=== PATIENT | female | born 1985 | race African-American/Black ===

== ENCOUNTER 2017-12-04 18:20 | Emergency (ER) | payer OTHER ==
[2017-12-04 20:08] LABS: Urine Blood NEGATIVE (NEG); Urine Glucose NEGATIVE (NEG); Urine Protein NEGATIVE (NEG); Urine Specific Gravity 1.015 (1.005-1.030)
[2017-12-04] MEDS ORDERED: KETOROLAC 30 MG/ML INJ ONE (20:14)
[2017-12-04] MEDS ORDERED: CYCLOBENZAPRINE 10 MG TAB ONE (20:15)
--- NOTE | 2017-12-04 20:53 | EDPHYS ---
Physician Documentation [facility] Name: Radha Grubbs Age: 32 yrs Sex: Female : 1985 Arrival Date: 12/04/2017 Time: 18:24 Bed 11 Private MD: ED Physician Gama So HPI: 12/04 19:39 This 32 yrs old Black Female presents to ER via Ambulatory with complaints of Back Pain.rh1 19:39 The patient presents with pain that is chronic. The symptoms are located in the low rh1 back. Onset: The symptoms/episode began/occurred 5 year(s) ago, and became worse 2 day(s) ago. The pain does not radiate. Associated signs and symptoms: Pertinent negatives: abdominal pain, chest pain, constipation, dysuria, fever, hematuria, incontinence, nausea, numbness, tingling, urinary retention, vomiting, weakness. The problem was sustained when lifting heavy object. Modifying factors: The patient symptoms are alleviated by rest, the patient symptoms are aggravated by any movement. Severity of symptoms: At their worst the symptoms were moderate, in the emergency department the symptoms are unchanged. The patient has experienced similar episodes in the past. The patient has not recently seen a physician. PT. reports lower back pain increased for the past 2 days, began after lifting heavy object at home. Denies any saddle paresthesias, lower extremity paresthesias/weakness, fever/chills, abdominal pain, vomiting, urinary symptoms.. 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 - Social history:: Smoking status: Patient uses tobacco products, smokes one-half pack cigarettes per day. ROS: 19:39 Constitutional: Negative for fever, chills, and weight loss. rh1 19:39 Neck: Negative for pain with movement, pain at rest. 19:39 Cardiovascular: Negative for chest pain, edema. 19:39 Respiratory: Negative for shortness of breath. 19:39 Abdomen/GI: Negative for abdominal pain, nausea and vomiting, constipation, bowel incontinence. 19:39 Back: Positive for pain with movement, Negative for decreased range of motion, pain at rest. 19:39 : Negative for urinary symptoms, small amounts, bladder incontinence. 19:39 MS/extremity: Negative for decreased range of motion, pain, paresthesias. 19:39 Neuro: Negative for altered mental status, dizziness, numbness, tingling, weakness. 19:39 All other systems are negative. Exam: 19:39 Constitutional: This is a well developed, well nourished patient who is awake, alert, rh1 and in no acute distress. Head/Face: Normocephalic, atraumatic. Neck: Trachea midline, and no cervical lymphadenopathy. Supple, full range of motion without nuchal rigidity. No Meningismus. Cardiovascular: Regular rate and rhythm with a normal S1 and S2. No gallops, murmurs, or rubs. No JVD. No pulse deficits. Respiratory: Lungs have equal breath sounds bilaterally, clear to auscultation. No rales, rhonchi or wheezes noted. No increased work of breathing. Abdomen/GI: Soft, non-tender, with normal bowel sounds. No distension. No guarding or rebound. No evidence of tenderness throughout. Skin: Warm, dry with normal turgor. Normal color with no rashes, no lesions, and no evidence of cellulitis. MS/ Extremity: Pulses equal, no cyanosis. Neurovascular intact. Full, normal range of motion. 19:39 Back: pain, that is moderate, of the low back area and mid back area, ROM is painful, with flexion, with extension, CVA tenderness, is absent, muscle spasm, is appreciated in the low back area and mid back area, Straight leg raises: of both lower extremities does not illicit pain. 19:39 Neuro: Orientation: is normal, to person, place \T\ time. Mentation: is normal, lucid, able to follow commands, Motor: is normal, moves all fours, strength is 5/5 in all extremities, dorsi/plantar flexion 5/5 bilaterally, Sensation: is normal, no obvious gross deficits, numbness, is not appreciated, tingling, is not appreciated, Gait: is steady, at a normal pace, without difficulty, Deep tendon reflexes are 2+ (normal) in the right patellar, right Achilles, left patellar and left Achilles. Vital Signs: 18:37 BP 125 / 94; Pulse 80; Resp 16; Temp 98.6(TE); Pulse Ox 100% on R/A; Weight 95.25 kg; la1 Height 5 ft. 6 in. (167.64 cm); 21:00 BP 122 / 87; Pulse 82; Resp 18 S; Temp 98.5(TE); Pulse Ox 97% on R/A; Pain 7/10; bb 18:37 Body Mass Index 33.89 (95.25 kg, 167.64 cm) la1 MDM: 19:39 Patient medically screened. rh1 20:51 Data reviewed: vital signs, nurses notes, lab test result(s), and as a result, I will rh1 discharge patient. Data interpreted: Pulse oximetry: on room air is 100 %. Interpretation: normal. Counseling: I had a detailed discussion with the patient and/or guardian regarding: the historical points, exam findings, and any diagnostic results supporting the discharge/admit diagnosis, lab results, the need for outpatient follow up, a family practitioner, to return to the emergency department if symptoms worsen or persist or if there are any questions or concerns that arise at home. 12/04 19:56 Order name: Urine Dipstick--Ancillary (enter results); Complete Time: 20:12 [facility] 12/04 19:56 Order name: Urine --Ancillary (enter results); Complete Time: 20:12 [facility] 12/04 19:39 Order name: Urine Dipstick-Ancillary (obtain specimen); Complete Time: 19:54 [facility] 12/04 19:39 Order name: Urine Test (obtain specimen); Complete Time: 19:54 [facility] Administered Medications: 20:15 Drug: Ketorolac 60 mg Route: IM; Site: left gluteus; bb 21:06 Follow up: Response: No adverse reaction bb 20:15 Drug: Flexeril 10 mg Route: PO; bb 21:06 Follow up: Response: No adverse reaction bb Disposition: 12/05 05:44 Co-signature as Attending Physician, Gama So MD. ma2 Disposition: 12/04/17 20:52 Discharged to Home. Impression: Low back pain. - Condition is Stable. - Discharge Instructions: Back Pain, Adult, Chronic Back Pain, Back Injury Prevention, [id number], Back Exercises, [id number], Heat Therapy. - Prescriptions for Cyclobenzaprine 10 mg Oral Tablet - take 1 tablet by ORAL route every 8 hours As needed; 30 tablet. Diclofenac Sodium 75 mg Oral Tablet Sustained Release - take 1 tablet by ORAL route 2 times per day; 30 tablet. - Medication Reconciliation Form, Thank You Letter, Antibiotic Education, Prescription Opioid Use form. - Follow up: Private Physician; When: 1 - 2 days; Reason: Recheck today's complaints, Continuance of care, Re-evaluation by your physician. Follow up: Emergency Department; When: As needed; Reason: Fever > 102 F, If symptoms return, Trouble breathing, Worsening of condition. - Problem is new. - Symptoms have improved. Signatures: Dispatcher [employer] EDLana Sena RN RN bb Sadiq Ferguson RN RN la1 Dalila Crocker NP CLAM TREADER 1 Gama So MD MD ma2
--- NOTE | 2017-12-04 20:53 | ER ---
Nurse's Notes [facility] Name: Radha Grubbs Age: 32 yrs Sex: Female : 1985 Arrival Date: 12/04/2017 Time: 18:24 Bed 11 Private MD: Diagnosis: Low back pain Presentation: 12/04 18:36 Presenting complaint: Patient states: I have been having back pain for a couple years la1 but it is worse today. Transition of care: patient was not received from another setting of care. Onset of symptoms was December 04, 2017. Care prior to arrival: None. 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 - Social history:: Smoking status: Patient uses tobacco products, smokes one-half pack cigarettes per day. Screenin:16 Abuse screen: Denies threats or abuse. Nutritional screening: No deficits noted. la1 Tuberculosis screening: No symptoms or risk factors identified. Fall Risk None identified. Assessment: 19:16 General: Appears in no apparent distress. Behavior is calm, cooperative. Pain: la1 Complains of pain in lumbar area, left low back and right low back. Neuro: Level of Consciousness is awake, alert, obeys commands, Oriented to person, place, time, situation, Gait is steady, Speech is normal. Cardiovascular: Capillary refill < 3 seconds Patient's skin is warm and dry. Respiratory: Airway is patent Respiratory effort is even, unlabored, Respiratory pattern is regular, symmetrical. GI: No signs and/or symptoms were reported involving the gastrointestinal system. 19:18 Reassessment: No changes from previously documented assessment. bb 20:59 Reassessment: Patient and/or family updated on plan of care and expected duration. Pain bb level reassessed. Patient states symptoms have not improved. 21:04 Reassessment: Pete Crocker GUNITE MIXER at bedside to discuss findings and recommendations pt to be bb discharged home with RX for pain and muscle relaxer pt verbalized understanding of and agrees to plan of care discharge instructions given pt ambulated with steady gait to exit. Vital Signs: 18:37 BP 125 / 94; Pulse 80; Resp 16; Temp 98.6(TE); Pulse Ox 100% on R/A; Weight 95.25 kg; la1 Height 5 ft. 6 in. (167.64 cm); 21:00 BP 122 / 87; Pulse 82; Resp 18 S; Temp 98.5(TE); Pulse Ox 97% on R/A; Pain 7/10; bb 18:37 Body Mass Index 33.89 (95.25 kg, 167.64 cm) in1 ED Course: 18:24 Patient arrived in ED. mr 18:36 Triage completed. la1 18:37 Arm band placed on left wrist. la1 19:13 Dalila Crocker NP is PHCP. rh1 19:13 Gama So MD is Attending Physician. rh1 19:16 Call light in reach. la1 19:17 Lana Molina, SLAVA is Primary Nurse. bb 21:00 No provider procedures requiring assistance completed. Patient did not have IV access bb during this emergency room visit. Administered Medications: 20:15 Drug: Ketorolac 60 mg Route: IM; Site: left gluteus; bb 21:06 Follow up: Response: No adverse reaction bb 20:15 Drug: Flexeril 10 mg Route: PO; bb 21:06 Follow up: Response: No adverse reaction bb Outcome: 20:52 Discharge ordered by . 1 21:00 Discharged to home ambulatory. bb 21:00 Condition: stable 21:00 Discharge instructions given to patient, Instructed on discharge instructions, follow up and referral plans. medication usage, Demonstrated understanding of instructions, follow-up care, medications, Prescriptions given X 2. 21:06 Patient left the ED. bb Signatures: Juanita Aguillon mr Lana Molina, RN RN bb Sadiq Ferguson RN RN la1 Dalila Crocker, KENDRA GUNITE MIXER [facility]
[2017-12-04 21:25] VITALS: BP 122/87; TEMP 98.5; O2SAT 97
== END 2017-12-04 21:06 | disposition home or self-care (01) ==
LOC: ER 18:20
DX: M54.5 Low back pain (principal)
CPT/HCPCS: 81003; 81025; 96372; 99283

== ENCOUNTER 2017-12-10 19:32 | Emergency (ER) | payer OTHER ==
--- NOTE | 2017-12-10 20:22 | RAD REPORT ---
EXAM DESCRIPTION: RAD - Knee Left 3 View - 12/10/2017 8:13 pm CLINICAL HISTORY: Fall, left knee pain COMPARISON: None. FINDINGS: No fracture, dislocation or periosteal reaction.No joint effusion seen. No joint space destini rowing. No soft tissue abnormality. Clinical concerns for internal derangement or occult bony injury could be further assessed with MR im aging. IMPRESSION: Negative left knee.
--- NOTE | 2017-12-10 20:58 | ER ---
Nurse's Notes [facility] Name: Radha Grubbs Age: 32 yrs Sex: Female : 1985 Arrival Date: 12/10/2017 Time: 19:42 Bed 17 Private MD: Diagnosis: Low back pain;Pain in left knee Presentation: 12/10 19:57 Presenting complaint: Patient states: Seen here 3 days ago for back pain related to aj fall. Given Muscle relaxer and NSAID. Patient reports pain has not gotten better and patient also reports new pain to left knee after slipping in bath tub. Patient arrived with knee brace in place, denies being seen at another facility for this complaint. Transition of care: patient was not received from another setting of care. Onset of symptoms was December 07, 2017. Initial Sepsis Screen: Does the patient meet any 2 criteria? No. Patient's initial sepsis screen is negative. Does the patient have a suspected source of infection? No. Patient's initial sepsis screen is negative. Care prior to arrival: None. 19:57 Method Of Arrival: Ambulatory 19:57 Acuity: TREVOR 4 Triage Assessment: 19:59 General: Appears in no apparent distress. comfortable, Behavior is calm, cooperative, aj appropriate for age. Pain: Complains of pain in left knee Pain currently is 9 out of 10 on a pain scale. Neuro: Level of Consciousness is awake, alert, obeys commands, Oriented to person, place, time, situation. Respiratory: Airway is patent Respiratory effort is even, unlabored, Respiratory pattern is regular, symmetrical. Derm: Skin is intact, is healthy with good turgor, Skin is pink, warm \T\ dry. normal. Musculoskeletal: Circulation, motion, and sensation intact. Range of motion: intact in all extremities, Swelling present in left knee. 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 - Social history:: Smoking status: Patient uses tobacco products, smokes one-half pack cigarettes per day. Screenin:21 Abuse screen: Denies threats or abuse. Denies injuries from another. Nutritional lk1 screening: No deficits noted. Tuberculosis screening: No symptoms or risk factors identified. Fall Risk Total Killian Fall Scale indicates High Risk Score (45 or more points). Fall prevention measures have been instituted. Side Rails Up X 2 Placed Close to Nursing Station Frequent Obs/Assessments Occuring As available patient and family educated on Fall Prevention Program and Strategies. Assessment: 20:20 General: Appears in no apparent distress. Behavior is calm, cooperative, appropriate lk1 for age. Pain: Complains of pain in left knee Pain currently is 9 out of 10 on a pain scale. Neuro: Level of Consciousness is awake, alert, obeys commands, Oriented to person, place, time, situation. Neuro: Gait is steady. Cardiovascular: Capillary refill is brisk Patient's skin is warm and dry. Musculoskeletal: Circulation, motion, and sensation intact. Range of motion: limited in left knee Swelling present in left knee Tenderness present in left knee. Vital Signs: 19:59 BP 133 / 90; Pulse 89; Resp 16; Temp 98.6; Pulse Ox 98% on R/A; Weight 77.11 kg; Height aj 5 ft. 6 in. (167.64 cm); Pain 9/10; 21:10 BP 127 / 79; Pulse 75; Resp 15; Pulse Ox 99% on R/A; lk1 19:59 Body Mass Index 27.44 (77.11 kg, 167.64 cm) aj ED Course: 19:42 Patient arrived in ED. ds1 19:58 Triage completed. aj 19:59 Arm band placed on left wrist. Patient placed in waiting room, Patient notified of wait aj time. X-ray ordered. 20:12 X-ray completed. Portable x-ray completed in exam room. Patient tolerated procedure kc2 well. 20:13 Knee Left 3 View XRAY In Process Unspecified. EDMS 20:30 Denton De NP is PHCP. pm1 20:30 Dilip Ahuja MD is Attending Physician. pm1 21:19 Kia Rice, SLAVA is Primary Nurse. lk1 21:21 Patient has correct armband on for positive identification. Bed in low position. Call lk1 light in reach. 21:21 No provider procedures requiring assistance completed. Patient did not have IV access lk1 during this emergency room visit. Crutch training done. Knee immobilizer applied on left knee. Administered Medications: No medications were administered Outcome: 20:57 Discharge ordered by MD. pm1 21:22 Discharged to home ambulatory, with crutches. lk1 21:22 Condition: good 21:22 Discharge instructions given to patient, Instructed on discharge instructions, follow up and referral plans. medication usage, safety practices, crutch walking, Demonstrated understanding of instructions, follow-up care, medications, crutch walking, Prescriptions given X 1. 21:24 Patient left the ED. lk1 Signatures: Dispatcher [employer] EDMS Cinthia Ferrer, RN Deepthi Reinoso ds1 Kia Rice RN RN lk1 Denton De, KENDRA ION EXCHANGE OPERATOR pm1 Gela Cai2
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
[2017-12-10 21:36] VITALS: TEMP 98.6
[2017-12-10 21:37] VITALS: BP 127/79; O2SAT 99
== END 2017-12-10 21:24 | disposition home or self-care (01) ==
LOC: ER 19:32
DX: M25.562 Pain in left knee (principal); M54.5 Low back pain; I10 Essential (primary) hypertension; F31.9 Bipolar disorder, unspecified; F17.210 Nicotine dependence, cigarettes, uncomplicated; W18.2XXA Fall in (into) shower or empty bathtub, initial encounter; Y93.9 Activity, unspecified; Y92.002 Bathroom of unspecified non-institutional (private) residence as the place of occurrence of the external cause
CPT/HCPCS: 99283

== ENCOUNTER 2018-04-29 13:03 | Emergency (ER) | payer OTHER ==
--- OUTSIDE RECORDS SUMMARY | 2018-04-29 13:06 | XMS REPORT ---
:1985 Author Organization [employer] Care Team Providers Name Role Phone Gagnon, Na Provider Role Unavailable Allergies, Adverse Reactions, Alerts Substance Reaction Event Type N.K.D.A. Info Not Available Non Drug Allergy Problems Problem Type Condition Code Onset Dates Condition Status Assessment Anxiety F41.9 Active Assessment Seizure R56.9 Active Assessment Bipolar 1 disorder F31.9 Active Problem Anxiety F41.9 Active Problem Bipolar 1 disorder F31.9 Active Problem Hypertension I10 Active Assessment Hypertension I10 Active Problem Migraine G43.909 Active Problem Seizure R56.9 Active Medications Medication Code Code Instructions Start End Date Status Dosage System Date Amlodipine [facility] 12918008849 10 MG Orally Active 1 tablet Besylate Once a day Xanax [facility] 30800402009 2 MG Orally Active 1 tablet Three times a day Results No Known Results Summary Purpose [employer] Submission
--- OUTSIDE RECORDS SUMMARY | 2018-04-29 13:06 | XMS REPORT ---
:1985 Author Organization [employer] Care Team Providers Name Role Phone Gagnon, Na Provider Role Unavailable Allergies, Adverse Reactions, Alerts Substance Reaction Event Type N.K.D.A. Info Not Available Non Drug Allergy Problems Problem Type Condition Code Onset Dates Condition Status Assessment Anxiety F41.9 Active Assessment Seizure R56.9 Active Assessment Bipolar 1 disorder F31.9 Active Assessment Blood tests for routine general Z00.00 Active physical examination Problem Anxiety F41.9 Active Problem Bipolar 1 disorder F31.9 Active Problem Hypertension I10 Active Assessment Hypertension I10 Active Problem Migraine G43.909 Active Problem Seizure R56.9 Active Medications Medication Code Code Instructions Start End Status Dosage System Date Date Xanax [facility] [address]-56 2 MG Orally Active 1 tablet Three times a day Amlodipine [facility] 35495681195 10 MG Orally Active 1 tablet Besylate Once a day Results No Known Results Summary Purpose [employer] Submission
--- NOTE | 2018-04-29 14:32 | ER ---
Nurse's Notes [facility] Name: Radha Grubbs Age: 32 yrs Sex: Female : 1985 Arrival Date: 04/29/2018 Time: 13:04 Bed Waiting Private MD: Diagnosis: Presentation: 04/29 13:33 Presenting complaint: Patient states: Reports N/V for 2 days. Reports she is still aj making urine and is able to tolerate fluids. Transition of care: patient was not received from another setting of care. Onset of symptoms was April 26, 2018. Risk Assessment: Do you want to hurt yourself or someone else? Patient reports no desire to harm self or others. Initial Sepsis Screen: Does the patient meet any 2 criteria? No. Patient's initial sepsis screen is negative. Does the patient have a suspected source of infection? No. Patient's initial sepsis screen is negative. Note Patient inquired about wait time. Care prior to arrival: None. 13:33 Method Of Arrival: Ambulatory aj 13:33 Acuity: TREVOR 2 aj Triage Assessment: 13:35 General: Appears in no apparent distress. comfortable, Behavior is calm, cooperative, aj appropriate for age. Pain: Denies pain. 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 Full function Gait is steady, Speech is normal, Facial symmetry appears normal, Pupils are PERRLA, Intact. Respiratory: Airway is patent Respiratory effort is even, unlabored, Respiratory pattern is regular, symmetrical. GI: Reports nausea, vomiting. Derm: Skin is intact, is healthy with good turgor, Skin is pink, warm \T\ dry. normal. 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 - Social history:: Smoking status: Patient uses tobacco products, smokes one-half pack cigarettes per day. - Ebola Screening: : Patient negative for fever greater than or equal to 101.5 degrees Fahrenheit, and additional compatible Ebola Virus Disease symptoms Patient denies exposure to infectious person Patient denies travel to an Ebola-affected area in the 21 days before illness onset No symptoms or risks identified at this time. Vital Signs: 13:35 BP 155 / 115; Pulse 79; Resp 16; Temp 98.2; Pulse Ox 99% on R/A; Weight 86.18 kg; aj Height 5 ft. 7 in. (170.18 cm); 13:35 Body Mass Index 29.76 (86.18 kg, 170.18 cm) aj ED Course: 13:04 Patient arrived in ED. rg4 13:34 Triage completed. aj 13:35 Arm band placed on left wrist. Patient placed in waiting room, Patient notified of wait aj time. 13:53 Patient's name was called from ER lobby. No response. dm5 14:23 Patient's name was called from ER lobby. No response. dm5 14:31 Johnie Albarado MD is Attending Physician. aj 14:31 Patient's name was called from ER lobby. No response. aj Administered Medications: No medications were administered Outcome: 14:31 Eloped from waiting room, before seeing physician Time discovered patient gone: aj April 29, 2018 at 14:31 14:31 Patient left the ED. aj Signatures: Mima Rothman, RN RN Cinthia Park RN RN Latanya Peñaloza rg4 Corrections: (The following items were deleted from the chart) 13:34 13:33 Acuity: TREVOR 3 aj aj
== END 2018-04-29 14:31 | disposition left against medical advice (07) ==
LOC: ER 13:03
DX: Z53.21 Procedure and treatment not carried out due to patient leaving prior to being seen by health care provider (principal)
CPT/HCPCS: 99281

== ENCOUNTER 2018-08-15 20:43 | Emergency (ER) | payer SELFPAY ==
--- OUTSIDE RECORDS SUMMARY | 2018-08-15 20:45 | XMS REPORT ---
[...] End Status Dosage System Date Date Xanax [facility] [address]-33 2 MG Orally Active 1 tablet Three times a day Amlodipine [facility] 61199409685 10 MG Orally Active 1 tablet Besylate Once a day Results No Known Results Summary Purpose eClinicalWorks Submission
--- OUTSIDE RECORDS SUMMARY | 2018-08-15 20:45 | XMS REPORT ---
:1985 Author Organization eClinicalWorks Care Team Providers Name Role Phone Gagnon, Na Provider Role Unavailable Allergies No Known Allergies Problems Problem Type Condition Code Onset Dates Condition Status Problem Anxiety F41.9 Active Problem Bipolar 1 disorder F31.9 Active Problem Hypertension I10 Active Problem Migraine G43.909 Active Problem Seizure R56.9 Active Medications No Known Medications Results No Known Results Summary Purpose eClinicalWorks Submission
--- OUTSIDE RECORDS SUMMARY | 2018-08-15 20:45 | XMS REPORT ---
:1985 Author Organization eClinicalWorks Care Team Providers Name Role Phone Saurabh Bell Provider Role Unavailable Allergies, Adverse Reactions, Alerts Substance Reaction Event Type N.K.D.A. Info Not Available Non Drug Allergy Problems Problem Type Condition Code Onset Dates Condition Status Assessment Anxiety F41.9 Active Problem Anxiety F41.9 Active Problem Bipolar 1 disorder F31.9 Active Problem Hypertension I10 Active Assessment Hypertension I10 Active Problem Migraine G43.909 Active Problem Seizure R56.9 Active Medications Medication Code Code Instructions Start End Date Status Dosage System Date Xanax [facility] [id number] 2 MG Orally Active 1 tablet Three times a day Amlodipine [facility] 80462507653 10 MG Orally Oct 15, Active 1 tablet Besylate Once a day 2017 Results No Known Results Summary Purpose eClinicalWorks Submission
--- OUTSIDE RECORDS SUMMARY | 2018-08-15 20:45 | XMS REPORT ---
[...] End Date Status Dosage System Date Amlodipine [facility] 83068431433 10 MG Orally Active 1 tablet Besylate Once a day Xanax [facility] 43897289419 2 MG Orally Active 1 tablet Three times a day Results No Known Results Summary Purpose eClinicalWorks Submission
[2018-08-15 22:22] LABS: Absolute Lymphocytes (CBC) 2.7 K/uL (0.7-4.9); Absolute Monocytes 0.7 K/uL (0.1-1.3); Absolute Neutrophil 3.9 K/uL (1.8-8.0); Eosinophils % 3.8 % (0-4.4); Hematocrit 36.6 % (36.0-45.0); Lymphocytes % 35.1 % (15.3-44.8); MPV 8.3 fL (7.6-11.3); Monocytes % 8.9 % (3.3-12.3); RBC Red Blood Cell Count 4.42 M/uL (3.86-4.86)
[2018-08-15 22:24] LABS: Barbiturates NEGATIVE (NEGATIVE); Benzodiazepines POSITIVE (NEGATIVE); Cocaine NEGATIVE (NEGATIVE); METHAMPHETAM NEGATIVE (NEGATIVE); Methadone NEGATIVE (NEGATIVE); Opiates NEGATIVE (NEGATIVE); Phencyclidine NEGATIVE (NEGATIVE); THC Cannibis POSITIVE (NEGATIVE)
[2018-08-15 22:27] LABS: Protime INR 1.1
[2018-08-15 22:37] LABS: ALT/SGPT 16 U/L (12-78); AST/SGOT 9 U/L (15-37); Albumin 3.5 g/dL (3.4-5.0); Alkaline Phosphatase 59 U/L (45-117); BUN Blood Urea Nitrogen 21 mg/dL (7-18); Bicarbonate 25 mmol/L (21-32); Bilirubin Direct 0.2 mg/dL (0-0.2); Bilirubin Total 0.4 mg/dL (0.2-1.0); Glucose Level 84 mg/dL (74-106); Magnesium 2.1 mg/dL (1.8-2.4); NT PRO-BNP 69 pg/mL (<125); Protein, Total 7.1 g/dL (6.4-8.2); Sodium Level 141 mmol/L (136-145); Troponin (Emerg Dept Use Only) < 0.02 ng/mL (0.0-0.045)
[2018-08-15 22:39] LABS: Urine Blood NEGATIVE (NEG); Urine Glucose NEGATIVE (NEG); Urine Protein NEGATIVE (NEG); Urine pH 6.5 (5.0-7.0)
[2018-08-15] MEDS ORDERED: HYDROCODONE/APAP 7.5/325 MG TAB ONE (23:08)
--- NOTE | 2018-08-16 01:01 | ER ---
Nurse's Notes [facility] Name: Radha Grubbs Age: 33 yrs Sex: Female : 1985 Arrival Date: 08/15/2018 Time: 20:44 Bed 19 Private MD: Diagnosis: Chest pain. Neck pain. Right knee pain. Substance abuse Presentation: 08/15 21:00 Presenting complaint: EMS states: patient experiencing chest pain like a popping pain rr5 started today and back spasm. AO x3 unable to answer exact date and presidents name. Transition of care: patient was not received from another setting of care. Onset of symptoms was August 15, 2018. Risk Assessment: Do you want to hurt yourself or someone else? Patient reports no desire to harm self or others. Initial Sepsis Screen: Does the patient meet any 2 criteria? No. Patient's initial sepsis screen is negative. Does the patient have a suspected source of infection? No. Patient's initial sepsis screen is negative. Note patient noted being flat affect. no complaints of chest pain as of the moment as verbalized. with right wrist and knee immobilizer. Care prior to arrival: None. 21:00 Method Of Arrival: EMS: [facility] rr5 21:00 Acuity: TREVOR 3 rr5 Triage Assessment: 21:11 General: Appears in no apparent distress. Behavior is calm, cooperative, flat, quiet. rr5 Pain: Denies pain. EENT: No signs and/or symptoms were reported regarding the EENT system. Neuro: Level of Consciousness is awake, alert, obeys commands, Oriented to person, place, time, Pupils are PERRLA. Cardiovascular: Capillary refill < 3 seconds Patient's skin is warm and dry. Rhythm is regular. Respiratory: Airway is patent Respiratory effort is even, unlabored, Respiratory pattern is regular, symmetrical. GI: No signs and/or symptoms were reported involving the gastrointestinal system. : No signs and/or symptoms were reported regarding the genitourinary system. Derm: Skin is intact, Skin temperature is warm. Musculoskeletal: Capillary refill < 3 seconds, immobilizer at right wrist and right leg noted. 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 - Social history:: Smoking status: Patient uses tobacco products, smokes one-half pack cigarettes per day, Patient uses street drugs, marijuana, Patient/guardian denies using alcohol. - Ebola Screening: : Patient negative for fever greater than or equal to 101.5 degrees Fahrenheit, and additional compatible Ebola Virus Disease symptoms Patient denies exposure to infectious person Patient denies travel to an Ebola-affected area in the 21 days before illness onset. Screenin:10 Abuse screen: Denies threats or abuse. Denies injuries from another. Nutritional rr5 screening: No deficits noted. Tuberculosis screening: No symptoms or risk factors identified. Fall Risk Mental Status- Overestimates/Forgets Limitations (15 pts.). Total Killian Fall Scale indicates No Risk (0-24 pts). Assessment: 21:15 General: see triage assessment. Pain: Denies pain. rr5 21:15 Pain: Pain does not radiate. Pain began episode of chest pain started 1800 today. as of rr5 this moment negative for pain. 22:00 Reassessment: Patient appears in no apparent distress at this time. No changes from rr5 previously documented assessment. patient is quiet, no complaints made. Patient denies pain at this time. 22:50 Pain: Complains of pain in back Pain does not radiate. Pain currently is 5 out of 10 on rr5 a pain scale. Quality of pain is described as aching, Pain began gradually, Is intermittent. 23:00 Reassessment: Patient appears in no apparent distress at this time. complaint of back rr5 pain, stat medication given. 08/16 00:00 Reassessment: Patient appears in no apparent distress at this time. discharge rr5 instruction and prescription given and explained. vitally stable. Reassessment: Patient appears in no apparent distress at this time. review done by dr. dumont for discharge,explained to patient. 00:45 Reassessment: Patient appears in no apparent distress at this time. send for xray of rr5 cervical spine. 01:30 Reassessment: Patient appears in no apparent distress at this time. requested for rr5 liquid form of medication dr. dumont informed and changed the prescription. discharge instruction and prescription given and explained to patient. Vital Signs: 08/15 21:00 BP 147 / 106; Pulse 83; Resp 17; Temp 98.2; Pulse Ox 98% ; Weight 77.11 kg; Height 5 rr5 ft. 7 in. (170.18 cm); Pain 0/10; 22:00 BP 136 / 70; Pulse 80; Resp 17; Pulse Ox 99% ; rr5 23:00 BP 121 / 70; Pulse 79; Resp 17; Pulse Ox 99% ; rr5 08/16 00:00 BP 130 / 71; Pulse 80; Resp 15; Pulse Ox 99% ; rr5 01:00 BP 136 / 79; Pulse 76; Resp 16; Pulse Ox 98% ; rr5 01:30 BP 125 / 65; Pulse 80; Resp 16; Pulse Ox 99% ; rr5 08/15 21:00 Body Mass Index 26.63 (77.11 kg, 170.18 cm) rr5 ED Course: 08/15 20:44 Patient arrived in ED. am2 20:59 Diego Tejeda, SLAVA is Primary Nurse. rr5 21:05 Triage completed. rr5 21:10 Arm band placed on left wrist. EKG completed in triage. Results shown to MD. rr5 21:10 Patient has correct armband on for positive identification. Bed in low position. Call rr5 light in reach. Side rails up X2. radiation monitor on. Pulse ox on. NIBP on. 21:20 Severino Dumont MD is Attending Physician. pkl 22:05 Inserted saline lock: 20 gauge in left forearm, using aseptic technique. Blood rr5 collected. 22:05 Patient maintains SpO2 saturation greater than 95% on room air. rr5 22:28 XRAY Chest (1 view) In Process Unspecified. EDMS 22:28 Knee Right 3 View XRAY In Process Unspecified. EDMS 08/16 00:45 Patient moved to radiology via wheelchair. kw 00:45 X-ray completed. Patient tolerated procedure well. kw 00:46 Patient moved back from radiology. kw 00:46 XRAY C Spine Ap/lat In Process Unspecified. EDMS 01:30 No provider procedures requiring assistance completed. IV discontinued, intact, rr5 bleeding controlled, No redness/swelling at site. Pressure dressing applied. Administered Medications: 08/15 23:00 Drug: [place] (7.5 mg-325 mg) 1 tabs Route: PO; rr5 23:50 Follow up: Response: No adverse reaction rr5 Outcome: 08/16 01:00 Discharge ordered by . leona 01:30 Discharged to home ambulatory. rr5 01:30 Condition: stable 01:30 Discharge instructions given to patient, Instructed on discharge instructions, follow up and referral plans. medication usage, Demonstrated understanding of instructions, follow-up care, medications, Prescriptions given X 2. 01:44 Patient left the ED. rr5 Signatures: Dispatcher [employer] EDMS Severino Dumont MD MD pkl Whitley, Kimberlee kw Moreno, Amanda am2 Roque, Raymond, RN RN rr5
--- NOTE | 2018-08-16 01:01 | EDPHYS ---
Physician Documentation [facility] Name: Radha Grubbs Age: 33 yrs Sex: Female : 1985 Arrival Date: 08/15/2018 Time: 20:44 Bed 19 Private MD: ED Physician Severino Munson HPI: 08/15 23:09 This 33 yrs old Black Female presents to ER via EMS with complaints of Chest Pain. pkl 23:09 The patient or guardian reports chest pain that is located primarily in the substernal pkl area. The pain radiates to back. Associated signs and symptoms: Pertinent positives: pain right knee. The chest pain is described as dull. The patient has experienced similar episodes in the past, several times. 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 - Social history:: Smoking status: Patient uses tobacco products, smokes one-half pack cigarettes per day, Patient uses street drugs, marijuana, Patient/guardian denies using alcohol. - Ebola Screening: : Patient negative for fever greater than or equal to 101.5 degrees Fahrenheit, and additional compatible Ebola Virus Disease symptoms Patient denies exposure to infectious person Patient denies travel to an Ebola-affected area in the 21 days before illness onset. ROS: 23:09 Eyes: Negative for injury, pain, redness, and discharge, ENT: Negative for injury, pkl pain, and discharge, Neck: Negative for injury, pain, and swelling. 23:09 Cardiovascular: Positive for chest pain. 23:09 Respiratory: Negative for cough, shortness of breath. 23:09 Abdomen/GI: Negative for abdominal pain, nausea, vomiting, and diarrhea. 23:09 Back: Negative for acute changes. 23:09 : Negative for urinary symptoms. 23:09 MS/extremity: Positive for pain, of the right knee. 23:09 Skin: Negative for rash, acute changes. 23:09 Neuro: Negative for altered mental status, loss of consciousness. Exam: 23:09 Head/Face: Normocephalic, atraumatic. Eyes: Pupils equal round and reactive to light, pkl extra-ocular motions intact. Lids and lashes normal. Conjunctiva and sclera are non-icteric and not injected. Cornea within normal limits. Periorbital areas with no swelling, redness, or edema. ENT: Nares patent. No nasal discharge, no septal abnormalities noted. Tympanic membranes are normal and external auditory canals are clear. Oropharynx with no redness, swelling, or masses, exudates, or evidence of obstruction, uvula midline. Mucous membranes moist. Neck: Trachea midline, no thyromegaly or masses palpated, and no cervical lymphadenopathy. Supple, full range of motion without nuchal rigidity, or vertebral point tenderness. No Meningismus. Chest/axilla: Normal chest wall appearance and motion. Nontender with no deformity. No lesions are appreciated. Cardiovascular: Regular rate and rhythm with a normal S1 and S2. No gallops, murmurs, or rubs. Normal PMI, no JVD. No pulse deficits. Respiratory: Lungs have equal breath sounds bilaterally, clear to auscultation and percussion. No rales, rhonchi or wheezes noted. No increased work of breathing, no retractions or nasal flaring. Abdomen/GI: Soft, non-tender, with normal bowel sounds. No distension or tympany. No guarding or rebound. No evidence of tenderness throughout. Back: No spinal tenderness. No costovertebral tenderness. Full range of motion. Skin: Warm, dry with normal turgor. Normal color with no rashes, no lesions, and no evidence of cellulitis. MS/ Extremity: Pulses equal, no cyanosis. Neurovascular intact. Full, normal range of motion. Neuro: Awake and alert, GCS 15, oriented to person, place, time, and situation. Cranial nerves II-XII grossly intact. Motor strength 5/5 in all extremities. Sensory grossly intact. Cerebellar exam normal. Normal gait. Vital Signs: 21:00 BP 147 / 106; Pulse 83; Resp 17; Temp 98.2; Pulse Ox 98% ; Weight 77.11 kg; Height 5 rr5 ft. 7 in. (170.18 cm); Pain 0/10; 22:00 BP 136 / 70; Pulse 80; Resp 17; Pulse Ox 99% ; rr5 23:00 BP 121 / 70; Pulse 79; Resp 17; Pulse Ox 99% ; rr5 08/16 00:00 BP 130 / 71; Pulse 80; Resp 15; Pulse Ox 99% ; rr5 01:00 BP 136 / 79; Pulse 76; Resp 16; Pulse Ox 98% ; rr5 01:30 BP 125 / 65; Pulse 80; Resp 16; Pulse Ox 99% ; rr5 08/15 21:00 Body Mass Index 26.63 (77.11 kg, 170.18 cm) rr5 MDM: 08/15 20:59 Patient medically screened. snw 08/16 00:58 Data reviewed: vital signs, nurses notes, lab test result(s), EKG, radiologic studies, pkl plain films. 01:00 Patient medically screened. pkl 08/15 21:29 Order name: Basic Metabolic Panel pkl 08/15 21:29 Order name: CBC with Diff pkl 08/15 21:29 Order name: LFT's pkl 08/15 21:29 Order name: Magnesium; Complete Time: 23:07 pkl 08/15 21:29 Order name: NT PRO-BNP; Complete Time: 23:07 pkl 08/15 21:29 Order name: PT-INR; Complete Time: 23:07 pkl 08/15 21:29 Order name: Troponin (emerg Dept Use Only); Complete Time: 23:07 pkl 08/15 21:29 Order name: D-Dimer; Complete Time: 23:07 pkl 08/15 21:30 Order name: Basic Metabolic Panel; Complete Time: 23:07 EDMS 08/15 21:30 Order name: CBC with Automated Diff; Complete Time: 23:07 EDMS 08/15 21:30 Order name: Liver (Hepatic) Function; Complete Time: 23:07 EDMS 08/15 21:30 Order name: UDS; Complete Time: 23:07 pkl 08/15 22:27 Order name: Urine Dipstick--Ancillary (enter results); Complete Time: 23:07 mw2 08/15 22:27 Order name: Urine --Ancillary (enter results); Complete Time: 23:07 mw2 08/15 21:29 Order name: XRAY Chest (1 view) pkl 08/15 21:29 Order name: EKG; Complete Time: 21:31 pkl 08/15 21:29 Order name: Cardiac monitoring; Complete Time: 22:08 pkl 08/15 21:29 Order name: EKG - Nurse/Tech; Complete Time: 21:39 pkl 08/15 21:29 Order name: IV Saline Lock; Complete Time: 22:08 pkl 08/15 21:29 Order name: Labs collected and sent; Complete Time: 22:09 pkl 08/15 21:29 Order name: O2 Per Protocol; Complete Time: 21:39 pkl 08/15 21:29 Order name: O2 Sat Monitoring; Complete Time: 21:39 pkl 08/15 21:30 Order name: Knee Right 3 View XRAY pkl 08/15 23:44 Order name: XRAY C Spine Ap/lat pkl Administered Medications: 08/15 23:00 Drug: [place] (7.5 mg-325 mg) 1 tabs Route: PO; rr5 23:50 Follow up: Response: No adverse reaction rr5 Disposition: 08/16/18 01:00 Discharged to Home. Impression: Chest pain. Neck pain. Right knee pain. Substance abuse. - Condition is Stable. - Prescriptions for Ultram 50 mg Oral Tablet - take 1 tablet by ORAL route every 8 hours As needed; 20 tablet. promethazine 6.25 mg/5 mL Oral Syrup - take 10 milliliters by ORAL route 3 times per day As needed; 120 milliliter. - Medication Reconciliation Form, Thank You Letter, Antibiotic Education, Prescription Opioid Use form. - Follow up: Private Physician; When: 2 - 3 days; Reason: Re-evaluation by your physician. - Problem is new. - Symptoms have improved. Signatures: Dispatcher [employer] EDMI Severino Munson MD MD pkl Therrien, Shelly, THERMOMETER MAKER-C THERMOMETER MAKER-Csnw Diego Tejeda RN RN rr5 Corrections: (The following items were deleted from the chart) 08/16 01:44 01:00 08/16/2018 01:00 Discharged to Home. Impression: Chest pain. Neck pain. Right rr5 knee pain. Substance abuse. Condition is Stable. Forms are Medication Reconciliation Form, Thank You Letter, Antibiotic Education, Prescription Opioid Use. Follow up: Private Physician; When: 2 - 3 days; Reason: Re-evaluation by your physician. Problem is new. Symptoms have improved. pkl
[2018-08-16 02:00] VITALS: TEMP 98.2
[2018-08-16 02:06] VITALS: BP 125/65; O2SAT 99
--- NOTE | 2018-08-16 07:55 | EKG ---
Test Date: 2018-08-15 Test Time: 20:56:07 Research And Development Scientist: DESTINY MEASUREMENT RESULTS: Intervals: Rate: 85 WV: 152 QRSD: 82 QT: 368 QTc: 437 [place]: P: 66 WV: 152 QRS: 53 T: 46 INTERPRETIVE STATEMENTS: Normal sinus rhythm Possible Left atrial enlargement Borderline ECG Compared to ECG 12/07/2013 09:52:13 No significant changes Electronically Signed On 08-16-18 07:53:54 HYDROTHERAPIST by Ruben Cox
--- NOTE | 2018-08-16 08:04 | RAD REPORT ---
EXAM DESCRIPTION: RAD - Chest Single View - 08/15/2018 10:28 pm CLINICAL HISTORY: Chest pain COMPARISON: January 2013 TECHNIQUE: AP portable chest image was obtained 2218 hours . FINDINGS: Lungs are clear. Heart and vasculature are normal. No measurable pleural effusion and no p neumothorax. No acute bony abnormality seen. No acute aortic findings suspected. IMPRESSION: No acute cardiopulmonary process. No suspicious interval change. Signed report
--- NOTE | 2018-08-16 08:06 | RAD REPORT ---
EXAM DESCRIPTION: RAD - Knee Right 3 View - 08/15/2018 10:28 pm CLINICAL HISTORY: Knee pain COMPARISON: None. FINDINGS: No fracture, dislocation or periosteal reaction.No joint effusion seen. No joint space destini rowing. No foreign body or other soft tissue abnormality. IMPRESSION: Negative right knee. Clinical concerns for internal derangement or occult bony injury could be further assessed with MR im aging.
--- NOTE | 2018-08-16 08:12 | RAD REPORT ---
EXAM DESCRIPTION: RAD - C Spine Ap/Lat - 08/16/2018 12:58 am CLINICAL HISTORY: Neck pain COMPARISON: March 2012 FINDINGS: Cervical bodies are normal in height and alignment. No fracture or acute bony process seen . No disc space narrowing. There is no prevertebral soft tissue thickening or other suspicious soft tissue finding. IMPRESSION: Negative cervical spine examination.
== END 2018-08-16 01:44 | disposition home or self-care (01) ==
LOC: ER 20:43
DX: M54.2 Cervicalgia (principal); R07.9 Chest pain, unspecified; M25.561 Pain in right knee; F19.10 Other psychoactive substance abuse, uncomplicated; F17.210 Nicotine dependence, cigarettes, uncomplicated; F12.90 Cannabis use, unspecified, uncomplicated; F31.9 Bipolar disorder, unspecified; F41.9 Anxiety disorder, unspecified; I10 Essential (primary) hypertension; Z79.899 Other long term (current) drug therapy
CPT/HCPCS: 36415; 71045; 72040; 80048; 80076; 80307; 81003; 81025; 83735; 83880; 84484; 85025; 85379; 85610; 93005; 99285

== ENCOUNTER 2018-08-23 00:57 | Emergency (ER) | payer SELFPAY ==
--- OUTSIDE RECORDS SUMMARY | 2018-08-23 01:00 | XMS REPORT ---
[...] End Status Dosage System Date Date Xanax [facility] [address]-57 2 MG Orally Active 1 tablet Three times a day Amlodipine [facility] 06747497827 10 MG Orally Active 1 tablet Besylate Once a day Results No Known Results Summary Purpose eClinicalWorks Submission
--- OUTSIDE RECORDS SUMMARY | 2018-08-23 01:00 | XMS REPORT ---
[...] End Date Status Dosage System Date Amlodipine [facility] 06577947506 10 MG Orally Active 1 tablet Besylate Once a day Xanax [facility] 02947905359 2 MG Orally Active 1 tablet Three times a day Results No Known Results Summary Purpose eClinicalWorks Submission
--- OUTSIDE RECORDS SUMMARY | 2018-08-23 01:00 | XMS REPORT ---
[...] Dosage System Date Xanax [facility] 68575142697 2 MG Orally Active 1 tablet Three times a day Amlodipine [facility] 65439122427 10 MG Orally Oct 15, Active 1 tablet Besylate Once a day 2017 Results No Known Results Summary Purpose eClinicalWorks Submission
--- NOTE | 2018-08-23 02:45 | EDPHYS ---
Physician Documentation [facility] Name: Radha Grubbs Age: 33 yrs Sex: Female : 1985 Arrival Date: 08/23/2018 Time: 01:01 Bed 17 Private MD: ED Physician Dilip Ahuja HPI: 08/23 05:28 This 33 yrs old Black Female presents to ER via EMS with complaints of back pain. gs 05:28 The symptoms are located in the low back. Onset: The symptoms/episode began/occurred 1 gs week(s) ago. The pain does not radiate. Associated signs and symptoms: Pertinent negatives: incontinence, urinary retention. Modifying factors: the patient symptoms are aggravated by bending. Severity of symptoms: At their worst the symptoms were moderate, in the emergency department the symptoms are unchanged. The patient has experienced similar episodes in the past, multiple times, chronically. The patient has been recently seen at the [facility] Emergency Department, a couple of weeks ago, for similar complaints. 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 - Social history:: Smoking status: Patient uses tobacco products, smokes one-half pack cigarettes per day. - Ebola Screening: : No symptoms or risks identified at this time. ROS: 05:28 All other systems are negative. gs 05:28 Neck: Positive for pain with movement. gs Exam: 05:28 Head/Face: Normocephalic, atraumatic. Eyes: Pupils equal round and reactive to light, gs extra-ocular motions intact. Lids and lashes normal. Conjunctiva and sclera are non-icteric and not injected. Cornea within normal limits. Periorbital areas with no swelling, redness, or edema. ENT: Nares patent. No nasal discharge, no septal abnormalities noted. Tympanic membranes are normal and external auditory canals are clear. Oropharynx with no redness, swelling, or masses, exudates, or evidence of obstruction, uvula midline. Mucous membranes moist. Neck: Trachea midline, no thyromegaly or masses palpated, and no cervical lymphadenopathy. Supple, full range of motion without nuchal rigidity, or vertebral point tenderness. No Meningismus. Chest/axilla: Normal chest wall appearance and motion. Nontender with no deformity. No lesions are appreciated. Cardiovascular: Regular rate and rhythm with a normal S1 and S2. No gallops, murmurs, or rubs. Normal PMI, no JVD. No pulse deficits. Respiratory: Lungs have equal breath sounds bilaterally, clear to auscultation and percussion. No rales, rhonchi or wheezes noted. No increased work of breathing, no retractions or nasal flaring. Abdomen/GI: Soft, non-tender, with normal bowel sounds. No distension or tympany. No guarding or rebound. No evidence of tenderness throughout. Back: No spinal tenderness. No costovertebral tenderness. Full range of motion. Skin: Warm, dry with normal turgor. Normal color with no rashes, no lesions, and no evidence of cellulitis. MS/ Extremity: Pulses equal, no cyanosis. Neurovascular intact. Full, normal range of motion. Neuro: Awake and alert, GCS 15, oriented to person, place, time, and situation. Cranial nerves II-XII grossly intact. Motor strength 5/5 in all extremities. Sensory grossly intact. Cerebellar exam normal. Normal gait. 05:28 Constitutional: The patient appears alert, awake. Vital Signs: 01:12 BP 132 / 98; Pulse 75; Resp 18; Temp 98.6(O); Pulse Ox 100% on R/A; Weight 92.99 kg; tl2 Height 5 ft. 7 in. (170.18 cm); Pain 3/10; 02:27 BP 129 / 100; Pulse 75; Resp 18; Pulse Ox 100% on R/A; tl2 03:07 BP 127 / 99; Pulse 71; Resp 18; Pulse Ox 100% on R/A; tl2 01:12 Body Mass Index 32.11 (92.99 kg, 170.18 cm) tl2 MDM: 01:38 Patient medically screened. 05:28 Differential diagnosis: sprain. Data reviewed: vital signs, nurses notes. Counseling: I gs had a detailed discussion with the patient and/or guardian regarding: the historical points, exam findings, and any diagnostic results supporting the discharge/admit diagnosis, the need for outpatient follow up. Response to treatment: the patient's symptoms have markedly improved after treatment, and as a result, I will discharge patient. Administered Medications: 03:06 Drug: Pepcid 20 mg Route: PO; tl2 03:08 Follow up: Response: No adverse reaction; Medication administered at discharge. tl2 Disposition: 08/23/18 02:44 Discharged to Home. Impression: Chronic pain syndrome, Low back pain, Cervical disc disorders. - Condition is Stable. - Discharge Instructions: Back Pain, Adult, Chronic Pain, Back Pain, Adult, [id number], Neck Exercises. - Prescriptions for Naprosyn 500 mg Oral Tablet - take 1 tablet by ORAL route 2 times per day As needed take with food; 30 tablet. - Medication Reconciliation Form, Thank You Letter, Antibiotic Education, Prescription Opioid Use form. - Follow up: Private Physician; When: 2 - 3 days; Reason: Re-evaluation by your physician. Signatures: Erica Curry RN RN tl2 Dilip Ahuja MD MD Corrections: (The following items were deleted from the chart) 03:09 02:44 08/23/2018 02:44 Discharged to Home. Impression: Chronic pain syndrome; Low back tl2 pain; Cervical disc disorders. Condition is Stable. Forms are Medication Reconciliation Form, Thank You Letter, Antibiotic Education, Prescription Opioid Use. Follow up: Private Physician; When: 2 - 3 days; Reason: Re-evaluation by your physician. gs
--- NOTE | 2018-08-23 02:45 | ER ---
Nurse's Notes [facility] Name: Radha Grubbs Age: 33 yrs Sex: Female : 1985 Arrival Date: 08/23/2018 Time: 01:01 Bed 17 Private MD: Diagnosis: Chronic pain syndrome;Low back pain;Cervical disc disorders Presentation: 08/23 01:10 Presenting complaint: Patient states: My chest feels like it's going to pop when I tl2 cough or sneeze and my hands and neck feel tingly, this is been happening on and off for the past year. Transition of care: patient was not received from another setting of care. Onset of symptoms is unknown. Risk Assessment: Do you want to hurt yourself or someone else? Patient reports no desire to harm self or others. Initial Sepsis Screen: Does the patient meet any 2 criteria? No. Patient's initial sepsis screen is negative. Does the patient have a suspected source of infection? No. Patient's initial sepsis screen is negative. Care prior to arrival: None. 01:10 Method Of Arrival: EMS: [facility] tl2 01:10 Acuity: TREVOR 3 tl2 Triage Assessment: 01:12 General: Appears in no apparent distress. uncomfortable, Behavior is calm, cooperative, tl2 appropriate for age. Pain: Complains of pain in chest Pain does not radiate. Neuro: Level of Consciousness is awake, alert, obeys commands, Oriented to person, place, time, situation. Neuro: Reports tingling in hands, on and off for past year. Cardiovascular: Chest pain only reports pain when coughing or sneezing. Respiratory: Airway is patent Respiratory effort is even, unlabored, Respiratory pattern is regular, symmetrical. GI: Reports nausea. : No signs and/or symptoms were reported regarding the genitourinary system. Derm: Skin is pink, warm \T\ dry. 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 - Social history:: Smoking status: Patient uses tobacco products, smokes one-half pack cigarettes per day. - Ebola Screening: : No symptoms or risks identified at this time. Screenin:16 Abuse screen: Denies threats or abuse. Nutritional screening: No deficits noted. tl2 Tuberculosis screening: No symptoms or risk factors identified. Fall Risk None identified. Assessment: 01:12 General: see triage assessment. tl2 02:28 Reassessment: Patient appears in no apparent distress at this time. No changes from tl2 previously documented assessment. Patient and/or family updated on plan of care and expected duration. Pain level reassessed. Patient is alert, oriented x 3, equal unlabored respirations, skin warm/dry/pink. awaiting further orders per MD. 03:07 Reassessment: Patient appears in no apparent distress at this time. Patient and/or tl2 family updated on plan of care and expected duration. Pain level reassessed. Patient is alert, oriented x 3, equal unlabored respirations, skin warm/dry/pink. Pt verbalized understanding of discharge instructions, need for follow up and prescription usage. Vital Signs: 01:12 BP 132 / 98; Pulse 75; Resp 18; Temp 98.6(O); Pulse Ox 100% on R/A; Weight 92.99 kg; tl2 Height 5 ft. 7 in. (170.18 cm); Pain 3/10; 02:27 BP 129 / 100; Pulse 75; Resp 18; Pulse Ox 100% on R/A; tl2 03:07 BP 127 / 99; Pulse 71; Resp 18; Pulse Ox 100% on R/A; tl2 01:12 Body Mass Index 32.11 (92.99 kg, 170.18 cm) tl2 ED Course: 01:01 Patient arrived in ED. al2 01:10 Erica Curry, RN is Primary Nurse. tl2 01:12 Triage completed. tl2 01:12 Arm band placed on right wrist. tl2 01:16 Patient has correct armband on for positive identification. Bed in low position. Call tl2 light in reach. Side rails up X2. 01:23 Dilip Ahuja MD is Attending Physician. gs 03:07 No provider procedures requiring assistance completed. Patient did not have IV access tl2 during this emergency room visit. Administered Medications: 03:06 Drug: Pepcid 20 mg Route: PO; tl2 03:08 Follow up: Response: No adverse reaction; Medication administered at discharge. tl2 Outcome: 02:44 Discharge ordered by . bairon 03:07 Discharged to home ambulatory. tl2 03:07 Condition: stable 03:07 Discharge instructions given to patient, Instructed on discharge instructions, follow up and referral plans. medication usage, Demonstrated understanding of instructions, follow-up care, medications, Prescriptions given X 1. 03:09 Patient left the ED. tl2 Signatures: Erica Curry RN RN tl2 Dilip Ahuja MD MD gs Love, Ainsley al2
[2018-08-23] MEDS ORDERED: FAMOTIDINE 20 MG TAB ONE (03:12)
[2018-08-23 03:32] VITALS: TEMP 98.6; O2SAT 100
[2018-08-23 03:35] VITALS: BP 127/99
== END 2018-08-23 03:09 | disposition home or self-care (01) ==
LOC: ER 00:57
DX: G89.4 Chronic pain syndrome (principal); M50.80 Other cervical disc disorders, unspecified cervical region; I10 Essential (primary) hypertension; F17.210 Nicotine dependence, cigarettes, uncomplicated; F31.9 Bipolar disorder, unspecified
CPT/HCPCS: 99283

== ENCOUNTER 2020-01-15 18:05 | Emergency (ER) | payer SELFPAY ==
--- OUTSIDE RECORDS SUMMARY | 2020-01-15 18:06 | XMS REPORT ---
:1985 Author Organization [facility] t Address [address] [place] [address] Care Team Providers Name Role Phone Unavailable Unavailable Unavailable Problems Condition Condition Condition Status Onset Resolution Last Treating Co mments Source Name Details Category Date Date Treatment Clinician Date Anxiety Anxiety Problem [facility] Seizure Seizure Problem [facility] Bipolar 1 Bipolar [address] [facility] Hypertensi Hypertensi Diagnosis [facility] Migraine Migraine Problem [facility] Allergies, Adverse Reactions, Alerts This patient has no known allergies or adverse reactions. Medications Ordered Filled Start Stop Current Ordering Indication Dosage Frequency Signature Comments Components Source Medication Medication Date Date Medication? Clinician (SIG) Name Name Xanax Xanax Yes Saurabh [address] [facility] Amlodipine Amlodipine Saurabh [address] [facility] Bes[facility] Besylate 06[facility]07 [facility]00 [facility] Procedures This patient has no known procedures. Encounters Start End Encounter Admission Attending Care Care Encounter Source Date/Time Date/Time Type Type Clinicians Facility Department ID 2018-06-07 2018-06-07 [facility] [id number] [address] 11:00[facility]00 11[facility]00[facility]00 t [facility] l Medicine Outpati ent Clinics 2018-06-02 2018-06-02 [facility] [id number] [address] 14:31:00 14:31:00 t [facility] [place] [employer] [facility] Family Medicine l Medicine Outpati ent Clinics 2018-02-17 2018-02-17 [facility] [id number] [address] 14:45:00 14:45:00 t [employer] [facility] 2018-01-19 2018-01-19 Outpatient Yoselyn Murguia [id number] [facility] 11:15:00 11:15:00 t [employer] [facility] ent Clinics Results This patient has no known results.
--- NOTE | 2020-01-15 19:26 | ER ---
Nurse's Notes [facility] Name: Radha Grubbs Age: 34 yrs Sex: Female : 1985 Arrival Date: 01/15/2020 Time: 18:10 Bed Waiting Private MD: Diagnosis: Presentation: 01/14 18:24 Chief complaint: Patient states: States she wants to be checked for STD's, possible ll1 exposure last week. Reported abdominal pressure last night. N/V x 1 this am. Denies vaginal bleeding/discharge. No fever. Coronavirus screen: Proceed with normal triage. Patient denies a cough. Patient denies shortness of breath or difficulty breathing. Patient denies measured and/or subjective temperature greater than 100.4F prior to today's visit. Patient denies travel on a cruise ship or to a country the [facility] currently lists as an affected area. Patient denies contact with known and/or suspected case of COVID-19. Ebola Screen: Patient denies travel to an Ebola-affected area in the 21 days before illness onset. Initial Sepsis Screen: Does the patient meet any 2 criteria? HR > 90 bpm. No. Patient's initial sepsis screen is negative. Risk Assessment: Do you want to hurt yourself or someone else? Patient reports no desire to harm self or others. Onset of symptoms was January 08, 2020. 18:24 Method Of Arrival: Ambulatory ll1 18:24 Acuity: TREVOR 4 ll1 Historical: - Allergies: 18:27 No Known Allergies; ll1 - PMHx: 18:27 Bipolar disorder; Hypertension; Anxiety; ll1 - PSHx: 18:27 ; ll1 - Immunization history:: Adult Immunizations up to date. - Social history:: Smoking status: Patient reports the use of cigarette tobacco products, smokes one-half pack cigarettes per day, Patient uses alcohol, street drugs. Vital Signs: 18:24 BP 154 / 119; Pulse 100; Resp 18; Temp 98.6; Pulse Ox 100% ; Pain 0/10; ll1 ED Course: 18:10 Patient arrived in ED. as 18:26 Triage completed. ll1 18:27 Arm band placed on Patient notified of wait time. ll1 19:21 Diego Tejeda RN is Primary Nurse. rr5 19:22 [facility] 19:22 Vikram Verma MD is Attending Physician. [facility] 19:24 Patient's name was called from ER lobby. No response. Unable to locate patient. Will ll1 disposition as left without being seen by a provider. Administered Medications: No medications were administered Outcome: 19:25 Patient left the ED. ll1 Signatures: Darrius Amezcua PA PA jmm Martinez, Amelia as Roque, Raymond RN RN rr5 Maria Victoria Grubbs RN RN ll1
--- NOTE | 2020-01-15 19:26 | EDPHYS ---
Physician Documentation [facility] Name: Radha Grubbs Age: 34 yrs Sex: Female : 1985 Arrival Date: 01/15/2020 Time: 18:10 Bed Waiting Private MD: JOSEY Physician Historical: - Allergies: 01/14 18:27 No Known Allergies; ll1 - PMHx: 18:27 Bipolar disorder; Hypertension; Anxiety; ll1 - PSHx: 18:27 ; ll1 - Immunization history:: Adult Immunizations up to date. - Social history:: Smoking status: Patient reports the use of cigarette tobacco products, smokes one-half pack cigarettes per day, Patient uses alcohol, street drugs. Vital Signs: 18:24 BP 154 / 119; Pulse 100; Resp 18; Temp 98.6; Pulse Ox 100% ; Pain 0/10; ll1 Administered Medications: No medications were administered Disposition: 01/15/20 19:25 Patient left the facility before being seen by provider. - Patient left due to unknown. Signatures: Darrius Amezcua PA PA jmm Lewis, Lynsay, RN RN ll1 Corrections: (The following items were deleted from the chart) 19:23 19:22 Patient medically screened. key mackey
[2020-01-15 19:31] VITALS: BP 154/119; TEMP 98.6; O2SAT 100
== END 2020-01-15 19:25 | disposition left against medical advice (07) ==
LOC: ER 18:05
DX: Z20.2 Contact with and (suspected) exposure to infections with a predominantly sexual mode of transmission (principal); Z53.21 Procedure and treatment not carried out due to patient leaving prior to being seen by health care provider
CPT/HCPCS: 99281

== ENCOUNTER 2021-05-25 03:57 | Emergency (ER) | payer OTHER ==
[2021-05-25 04:54] LABS: Absolute Lymphocytes (CBC) 2.8 K/uL (0.7-4.9); Basophils % 0.6 % (0-1.3); Hematocrit 34.1 % (36.0-45.0); Lymphocytes % 29.2 % (15.3-44.8); MPV 7.7 fL (7.6-11.3); RBC Red Blood Cell Count 4.27 M/uL (3.86-4.86)
[2021-05-25 05:07] LABS: ALT/SGPT 25 U/L (12-78); AST/SGOT 16 U/L (15-37); Albumin 3.2 g/dL (3.4-5.0); Alkaline Phosphatase 93 U/L (45-117); BUN Blood Urea Nitrogen 5 mg/dL (7-18); Bicarbonate 29 mmol/L (21-32); Bilirubin Direct < 0.1 mg/dL (0-0.2); Bilirubin Total 0.3 mg/dL (0.2-1.0); Glucose Level 91 mg/dL (74-106); Lipase 114 U/L (73-393); Potassium 4.2 mmol/L (3.5-5.1); Protein, Total 7.6 g/dL (6.4-8.2); Sodium Level 145 mmol/L (136-145)
[2021-05-25 05:12] LABS: Urine Blood Trace-intact (Negative); Urine Glucose Negative (Negative); Urine Protein Negative (Negative)
[2021-05-25] MEDS ORDERED: NA CHLORIDE 0.9% 1,000 ML ONE (05:25)
[2021-05-25] MEDS ORDERED: FAMOTIDINE 20 MG/2 ML VIAL IV ONE (05:25)
[2021-05-25] MEDS ORDERED: ONDANSETRON 4 MG/2 ML VIAL ONE (05:25)
[2021-05-25 05:38] LABS: Barbiturates NEGATIVE (NEGATIVE); Benzodiazepines POSITIVE (NEGATIVE); Cocaine POSITIVE (NEGATIVE); METHAMPHETAM NEGATIVE (NEGATIVE); Methadone NEGATIVE (NEGATIVE); Opiates NEGATIVE (NEGATIVE); Phencyclidine NEGATIVE (NEGATIVE); THC Cannibis POSITIVE (NEGATIVE)
--- NOTE | 2021-05-25 06:00 | EDPHYS ---
Physician Documentation [facility] Name: Radha Grubbs Age: 35 yrs Sex: Female : 1985 Arrival Date: 05/25/2021 Time: 04:08 Bed 25 Private MD: ED Physician Vikram Verma HPI: 05/25 04:15 This 35 yrs old Black Female presents to ER via Unassigned with complaints of Back pain.mh7 04:15 The patient complains of pain in the right flank. The pain does not radiate. Onset: The mh7 symptoms/episode began/occurred 3 week(s) ago. Modifying factors: The symptoms are alleviated by nothing. the symptoms are aggravated by movement, palpation/percussion. Associated signs and symptoms: Pertinent positives: dysuria, nausea, vomiting, Pertinent negatives: diarrhea, dizziness, urinary frequency, headache, hematuria, pain radiating to the lower extremities. Severity of pain: At its worst the pain was moderate 5 day(s) ago, in the emergency department the pain has improved moderately. 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 Reports sexual activity dc2 with no control. Historical: - Home Meds: 04:10 Alprazolam Oral [Active]; amlodipine oral [Active]; dc2 - PMHx: 04:10 Anxiety; Bipolar disorder; Hypertension; dc2 - Immunization history:: Adult Immunizations up to date, Client reports receiving the 2nd dose of the Covid vaccine. - Social history:: Smoking status: Patient reports the use of cigarette tobacco products, smokes one pack cigarettes per day. ROS: 04:15 Constitutional: Negative for fever, chills, and weight loss, Eyes: Negative for injury, mh7 pain, redness, and discharge, ENT: Negative for injury, pain, and discharge, Neck: Negative for injury, pain, and swelling, Cardiovascular: Negative for chest pain, palpitations, and edema, Respiratory: Negative for shortness of breath, cough, wheezing, and pleuritic chest pain, MS/Extremity: Negative for injury and deformity, Skin: Negative for injury, rash, and discoloration, Neuro: Negative for headache, weakness, numbness, tingling, and seizure, Psych: Negative for depression, anxiety, suicide ideation, homicidal ideation, and hallucinations, Allergy/Immunology: Negative for hives, rash, and allergies, Endocrine: Negative for neck swelling, polydipsia, polyuria, polyphagia, and marked weight changes, Hematologic/Lymphatic: Negative for swollen nodes, abnormal bleeding, and unusual bruising. Exam: 04:15 Constitutional: This is a well developed, well nourished patient who is awake, alert, mh7 and in no acute distress. Head/Face: Normocephalic, atraumatic. Eyes: Pupils equal round and reactive to light, extra-ocular motions intact. Lids and lashes normal. Conjunctiva and sclera are non-icteric and not injected. Cornea within normal limits. Periorbital areas with no swelling, redness, or edema. Neck: Trachea midline, no thyromegaly or masses palpated, and no cervical lymphadenopathy. Supple, full range of motion without nuchal rigidity, or vertebral point tenderness. No Meningismus. Chest/axilla: Normal chest wall appearance and motion. Nontender with no deformity. No lesions are appreciated. Cardiovascular: Regular rate and rhythm with a normal S1 and S2. No gallops, murmurs, or rubs. Normal PMI, no JVD. No pulse deficits. Respiratory: Lungs have equal breath sounds bilaterally, clear to auscultation and percussion. No rales, rhonchi or wheezes noted. No increased work of breathing, no retractions or nasal flaring. Abdomen/GI: Soft, non-tender, with normal bowel sounds. No distension or tympany. No guarding or rebound. No evidence of tenderness throughout. Back: No spinal tenderness. No costovertebral tenderness. Full range of motion. Skin: Warm, dry with normal turgor. Normal color with no rashes, no lesions, and no evidence of cellulitis. MS/ Extremity: Pulses equal, no cyanosis. Neurovascular intact. Full, normal range of motion. Neuro: Awake and alert, GCS 15, oriented to person, place, time, and situation. Cranial nerves II-XII grossly intact. Motor strength 5/5 in all extremities. Sensory grossly intact. Cerebellar exam normal. Normal gait. Psych: Awake, alert, with orientation to person, place and time. Behavior, mood, and affect are within normal limits. Vital Signs: 04:16 BP 128 / 91; Pulse 92; Resp 22; Temp 98.5; Pulse Ox 99% on R/A; cc4 MDM: 06:58 Differential diagnosis: nephrolithiasis, pyelonephritis, UTI. Data reviewed: vital [facility] signs, nurses notes. ED course: Informed by nursing staff the patient refused CT abdomen pelvis and left AGAINST MEDICAL ADVICE.. 07:00 Patient medically screened. [facility] 05/25 04:22 Order name: Basic Metabolic Panel; Complete Time: 05:18 [facility] 05/25 04:22 Order name: CBC with Diff; Complete Time: 05:18 [facility] 05/25 04:22 Order name: Hepatic Function; Complete Time: 05:18 [facility] 05/25 04:22 Order name: Lipase; Complete Time: 05:18 [facility] 05/25 04:22 Order name: UDS [facility] 05/25 04:22 Order name: ETOH Level; Complete Time: 05:18 [facility] 05/25 05:11 Order name: Urine --Ancillary (enter results) 3 05/25 05:11 Order name: Urine Dipstick-Ancillary; Complete Time: 05:18 [facility] 05/25 05:12 Order name: Urine --Ancillary [facility] 05/25 04:22 Order name: IV Saline Lock; Complete Time: 04:42 [facility] 05/25 04:22 Order name: Labs collected and sent; Complete Time: 04:42 [facility] 05/25 04:22 Order name: Urine Dipstick-Ancillary (obtain specimen); Complete Time: 05:12 [facility] 05/25 04:22 Order name: Urine Test (obtain specimen); Complete Time: 05:12 7 Administered Medications: 05:49 Discontinued: NS 0.9% 1000 ml IV at 1000 ml once dc2 04:56 Drug: NS 0.9% 1000 ml Route: IV; Rate: 1000 ml; Infused Over: 1 hrs; Site: right dc2 antecubital; Delivery: Primary tubing; 04:57 Drug: Zofran (Ondansetron) 4 mg Route: IVP; Site: right antecubital; dc2 05:33 Follow up: Response: Nausea is decreased dc2 04:57 Drug: Pepcid (famotidine) 20 mg Route: IVP; Site: right antecubital; dc2 05:33 Follow up: Response: No adverse reaction dc2 05:15 Drug: NS 0.9% 1000 ml {Note: 100ml / hour.} Route: IV; Rate: 1000 ml; Site: left dc2 antecubital; Delivery: Primary tubing; Disposition Summary: 05/25/21 05:59 Left Against Medical Advice Location: Home dc2 Condition: Stable dc2 Discharge Instructions: - Discharge Summary Sheet [facility] - Nausea and Vomiting, Adult, [id number] [facility] - Flank Pain, Adult, [id number] 7 Signatures: Dispatcher [employer] EDMS Vikram Verma MD MD [facility] Yakelin Mckeon RN RN dc2 Corrections: (The following items were deleted from the chart) 05:06 04:58 QUANTITATIVE HCG+C.LAB.BRZ ordered. EDMS EDMS 05:46 05:19 Stone Protocol+CT.RAD.BRZ ordered. EDMS EDMS
--- NOTE | 2021-05-25 06:00 | ER ---
Nurse's Notes [facility] Name: Radha Grubbs Age: 35 yrs Sex: Female : 1985 Arrival Date: 05/25/2021 Time: 04:08 Bed 25 Private MD: Diagnosis: Presentation: 05/25 04:10 Chief complaint: Patient states: Pt states that she has had an upset stomach with dc2 gagging and burning to my bottom " Reports that has been going on for past 3 months. States she is but doesn't know how far along. 04:10 Coronavirus screen: Vaccine status: Patient reports receiving the 2nd dose of the covid dc2 vaccine. Client denies travel out of the [place] in the last 14 days. At this time, the client does not indicate any symptoms associated with coronavirus-19. The client reports previous COVID testing was negative. Ebola Screen: Patient negative for fever greater than or equal to 101.5 degrees Fahrenheit, and additional compatible Ebola Virus Disease symptoms Patient denies exposure to infectious person. Patient denies travel to an Ebola-affected area in the 21 days before illness onset. No symptoms or risks identified at this time. Initial Sepsis Screen: Does the patient meet any 2 criteria? No. Patient's initial sepsis screen is negative. Does the patient have a suspected source of infection? No. Patient's initial sepsis screen is negative. Risk Assessment: Do you want to hurt yourself or someone else? Patient reports no desire to harm self or others. Onset of symptoms was February 2021. Care prior to arrival: None. 04:10 Method Of Arrival: EMS: [facility] dc2 04:10 Acuity: TREVOR 3 dc2 Triage Assessment: 04:10 General: Appears in no apparent distress. comfortable, obese, well groomed, well dc2 developed, Behavior is cooperative, anxious, Smells of alcohol. 04:10 Pain: Denies pain. Neuro: No deficits noted. Cardiovascular: No deficits noted. dc2 Respiratory: No deficits noted. GI: Abdomen is non-distended, Last BM was May 24, 2021. : Reports burning with urination, since " months". Musculoskeletal: No deficits noted. 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 Reports sexual activity dc2 with no control. Historical: - Home Meds: 04:10 Alprazolam Oral [Active]; amlodipine oral [Active]; dc2 - PMHx: 04:10 Anxiety; Bipolar disorder; Hypertension; dc2 - Immunization history:: Adult Immunizations up to date, Client reports receiving the 2nd dose of the Covid vaccine. - Social history:: Smoking status: Patient reports the use of cigarette tobacco products, smokes one pack cigarettes per day. Screenin:15 Abuse screen: Denies threats or abuse. Denies injuries from another. Nutritional dc2 screening: No deficits noted. Tuberculosis screening: No symptoms or risk factors identified. Never had TB. Possible symptoms: None. Fall Risk None identified. No fall in past 12 months (0 pts). Secondary diagnosis (15 points) No IV (0 pts). Ambulatory Aid- None/Bed Rest/Nurse Assist (0 pts). Gait- Normal/Bed Rest/Wheelchair (0 pts) Mental Status- Oriented to own ability (0 pts). Total Killian Fall Scale indicates No Risk (0-24 pts). Assessment: 04:15 Neuro: No deficits noted. Cardiovascular: No deficits noted. Respiratory: No deficits dc2 noted. GI: Abdomen is obese, Bowel sounds present X 4 quads. Reports nausea. : Reports burning with urination, pain in lower back Pain is 6 out of 10 on a pain scale. 05:39 Reassessment: Pt got to Ct and refused . WHen asked why, she replied screaming " I want dc2 my schizophrenia meds!!!". 05:41 Reassessment: Luci Galindo made aware of refusal of CT. dc2 05:45 Reassessment: Pt disconnect IVF and left out of room. Asked pt to wait and I would dc2 remove her IV, pt refuse leaving out of the ER, phone and cigarettes left in room. 05:58 Reassessment: Pt leave out of the ED with steady gait noted. In nad. dc2 Vital Signs: 04:16 BP 128 / 91; Pulse 92; Resp 22; Temp 98.5; Pulse Ox 99% on R/A; cc4 ED Course: 04:08 Patient arrived in ED. tt3 04:14 Vikram Verma MD is Attending Physician. mh7 04:15 No provider procedures requiring assistance completed. dc2 04:15 Arm band placed on right wrist. dc2 04:15 Placed in gown. Bed in low position. Call light in reach. Side rails up X 1. Pulse ox dc2 on. NIBP on. Door closed. Lights dimmed. Warm blanket given. 04:23 Yakelin Mckeon, RN is Primary Nurse. dc2 04:40 Inserted saline lock: 20 gauge in right antecubital area, using aseptic technique. oe Blood collected. 05:20 Triage completed. dc2 05:32 Urine --Ancillary (enter results) Sent. dc2 05:[address] via stretcher. dc2 05:38 Patient moved back from [place]. dc2 Administered Medications: 05:49 Discontinued: NS 0.9% 1000 ml IV at 1000 ml once dc2 04:56 Drug: NS 0.9% 1000 ml Route: IV; Rate: 1000 ml; Infused Over: 1 hrs; Site: right dc2 antecubital; Delivery: Primary tubing; 04:57 Drug: Zofran (Ondansetron) 4 mg Route: IVP; Site: right antecubital; dc2 05:33 Follow up: Response: Nausea is decreased dc2 04:57 Drug: Pepcid (famotidine) 20 mg Route: IVP; Site: right antecubital; dc2 05:33 Follow up: Response: No adverse reaction dc2 05:15 Drug: NS 0.9% 1000 ml {Note: 100ml / hour.} Route: IV; Rate: 1000 ml; Site: left dc2 antecubital; Delivery: Primary tubing; Outcome: 05:55 AMA AMA form signed dc2 05:55 Condition: stable 05:55 Instructed on following up with PCP. 05:59 Patient left the ED. dc2 Signatures: Joe Beaver Maurice, MD MD mh7 Stan Pringle tt3 Dania Ferguson RN RN cc4 Yakelin Mckeon RN RN dc2
[2021-05-25 06:18] VITALS: BP 128/91; TEMP 98.5; O2SAT 99
== END 2021-05-25 05:59 | disposition left against medical advice (07) ==
LOC: ER 03:57
DX: R11.2 Nausea with vomiting, unspecified (principal); I10 Essential (primary) hypertension; F31.9 Bipolar disorder, unspecified; F17.210 Nicotine dependence, cigarettes, uncomplicated
CPT/HCPCS: 85025; 80048; 36415; 80320; 81025; 80076; 81003; 83690; 80307; 96375; 96374; 99284; J7030; J2405

== ENCOUNTER 2021-11-15 18:39 | Emergency (ER) | payer OTHER ==
--- OUTSIDE RECORDS SUMMARY | 2021-11-15 17:06 | XMS REPORT | Continuity of Care Document ---
:1985 Author Organization [facility] Address [address] [place] [address] Care Team Providers Name Role Phone Unavailable Unavailable Unavailable Problems Condition Condition Condition Status Onset Resolution Last Treating Co mments Source Name Details Category Date Date Treatment Clinician Date Anxiety Anxiety [facility] Seizure Seizure [facility] Bipolar 1 Bipolar [address] [facility] Hypertensi Hypertensi Diagnosis [facility] Migraine Migraine Problem [facility] Allergies, Adverse Reactions, Alerts This patient has no known allergies or adverse reactions. Medications Ordered Filled Start Stop Current Ordering Indication Dosage Frequency Signature Comments Components Source Medication Medication Date Date Medication? Clinician (SIG) Name Name Xanax Xanax Yes Saurabh [address] [facility] Amlodipine Amlodipine Saurabh [address] [facility] 06[facility]07 [facility] Procedures This patient has no known procedures. Encounters Start End Encounter Admission Attending Care Care Encounter Source Date/Time Date/Time Type Type Clinicians Facility Department ID 2018-06-07 2018-06-07 [facility] [id number] 11:[facility] 11:00:00 t [facility] Family Medicine l Medicine Outpati ent Clinics 2018-06-02 2018-06-02 [facility] [id number] 14:31[facility]00 14:31:00 t [employer] [place] [facility] Family Medicine l Medicine Outpati ent Clinics 2018-02-17 2018-02-17 [facility] [id number] 14:45[facility]00 14:45:[address] [facility] 2018-01-19 2018-01-19 Outpatient Yoselyn Murguia [id number] [facility] [place] 11:15:00 11:15:00 t [employer] [facility] ent [facility] Results This patient has no known results.
[2021-11-15 19:14] LABS: Urine Blood 1+ (Negative); Urine Glucose Negative (Negative); Urine Protein Negative (Negative); Urine Specific Gravity 1.025 (1.005-1.030)
[2021-11-15 19:39] LABS: Urine Specific Gravity/Preg 1.025 (1.005-1.030)
--- NOTE | 2021-11-15 20:10 | ER ---
Nurse's Notes [facility] Name: Radha Grubbs Age: 36 yrs Sex: Female : 1985 Arrival Date: 11/15/2021 Time: 18:08 Bed 25 Private MD: Diagnosis: Person with feared health complaint in whom no diagnosis is made Presentation: 11/15 19:05 Chief complaint: Patient states: Cough/congestion/nausea/abdominal pain/back pain lr4 off/on for 1 month, pt states she is and think she is having a miscarriage. Pt states she has had several miscarriages over her life time. Pt affect and behavior is bizarre. Unclear on how reliable pt's hx is. Coronavirus screen: Vaccine status: Patient reports being unvaccinated. Client denies travel out of the [place] in the last 14 days. congestion, cough unrelated to allergies. Ebola Screen: Patient negative for fever greater than or equal to 101.5 degrees Fahrenheit, and additional compatible Ebola Virus Disease symptoms. Initial Sepsis Screen: Does the patient meet any 2 criteria? No. Patient's initial sepsis screen is negative. Does the patient have a suspected source of infection? No. Patient's initial sepsis screen is negative. Risk Assessment: Do you want to hurt yourself or someone else? Patient reports no desire to harm self or others. Onset of symptoms was October 18, 2021. 19:05 Method Of Arrival: EMS lr4 19:05 Acuity: TREVOR 3 lr4 Triage Assessment: 19:30 General: Appears in no apparent distress. comfortable, unkempt, Behavior is calm, lr4 cooperative. Pain: Complains of pain in abdomen Pain currently is 7 out of 10 on a pain scale. Quality of pain is described as aching. Neuro: No deficits noted. Cardiovascular: No deficits noted. Respiratory: No deficits noted. GI: Abdomen is round non-distended, Reports lower abdominal pain, upper abdominal pain, nausea. : No deficits noted. 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 - Social history:: Smoking status: Patient reports the use of cigarette tobacco products, smokes two packs cigarettes per day. Screenin:30 Abuse screen: Denies threats or abuse. Nutritional screening: No deficits noted. lr4 Tuberculosis screening: No symptoms or risk factors identified. Fall Risk None identified. Vital Signs: 19:05 BP 136 / 101; Pulse 84; Resp 20; Temp 98.7; Pulse Ox 98% on R/A; Weight 99.79 kg; lr4 Height 5 ft. 6 in. (167.64 cm); Pain 7/10; 19:05 Body Mass Index 35.51 (99.79 kg, 167.64 cm) lr4 ED Course: 18:08 Patient arrived in ED. mr 19:05 Whitney Burdick RN is Primary Nurse. lr4 19:16 Darrius Amezcua PA [facility] 19:16 Royer Mendez DO is Attending Physician. [facility] 19:24 Triage completed. lr4 19:32 Arm band placed on right wrist. lr4 19:32 No provider procedures requiring assistance completed. lr4 19:33 Patient has correct armband on for positive identification. Bed in low position. Call lr4 light in reach. 20:09 Franklin Greenwood MD is Referral Physician. m 20:26 Patient did not have IV access during this emergency room visit. lr4 Administered Medications: No medications were administered Outcome: 19:33 Condition: stable lr4 20:09 Discharge ordered by . [facility] 20:26 Discharged to home ambulatory. lr4 20:26 Discharge instructions given to patient. 20:29 Patient left the ED. lr4 Signatures: Darrius Amezcua PA PA jmm Rivera, Mary mr GennaroWhitney, RN RN lr4
--- NOTE | 2021-11-15 20:10 | EDPHYS ---
Physician Documentation [facility] Name: Radha Grubbs Age: 36 yrs Sex: Female : 1985 Arrival Date: 11/15/2021 Time: 18:08 Bed 25 Private MD: ED Physician Royer Mendez HPI: 11/15 20:05 This 36 yrs old Black Female presents to ER via EMS with complaints of I am . jmm 20:05 The patient presents with abdominal pain. This is a 36-year-old female with history of [facility] anxiety, bipolar, hypertension, diabetes mellitus the presents emerged department with complaints of concerns for . Patient states that she has some nausea, she has some pelvic pressure. Patient states she feels the baby moving in all 4 quadrants of her abdomen.. 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 - Social history:: Smoking status: Patient reports the use of cigarette tobacco products, smokes two packs cigarettes per day. ROS: 20:05 Constitutional: Negative for fever, chills, and weight loss, Cardiovascular: Negative jmm for chest pain, palpitations, and edema, Respiratory: Negative for shortness of breath, cough, wheezing, and pleuritic chest pain. 20:05 Abdomen/GI: Positive for abdominal pain, nausea. 20:05 : Positive for pelvic pain. 20:05 All other systems are negative. Exam: 20:05 Constitutional: This is a well developed, well nourished patient who is awake, alert, jmm and in no acute distress. Head/Face: atraumatic. Eyes: EOMI, no conjunctival erythema appreciated ENT: Moist Mucus Membranes Neck: Trachea midline, Supple Chest/axilla: Normal chest wall appearance and motion. Cardiovascular: Regular rate and rhythm. No edema appreciated Respiratory: Normal respirations, no respiratory distress appreciated Abdomen/GI: Non distended, soft Back: Normal ROM Skin: General appearance color normal MS/ Extremity: Moves all extremities, no obvious deformities appreciated, no edema noted to the lower extremities Neuro: Awake and alert Psych: Behavior is normal, Mood is normal, Patient is cooperative and pleasant Vital Signs: 19:05 BP 136 / 101; Pulse 84; Resp 20; Temp 98.7; Pulse Ox 98% on R/A; Weight 99.79 kg; lr4 Height 5 ft. 6 in. (167.64 cm); Pain 7/10; 19:05 Body Mass Index 35.51 (99.79 kg, 167.64 cm) lr4 MDM: 19:33 Patient medically screened. [facility] 20:08 Data reviewed: vital signs, nurses notes. Counseling: I had a detailed discussion with key the patient and/or guardian regarding: the historical points, exam findings, and any diagnostic results supporting the discharge/admit diagnosis, lab results, the need for outpatient follow up, to return to the emergency department if symptoms worsen or persist or if there are any questions or concerns that arise at home. ED course: Patient is abdomen is soft and nontender to palpation. UA was negative for . Patient advised to follow with gynecology for further evaluation otherwise given strict return precautions. Patient understood agrees plan of care peer. 11/15 19:14 Order name: Urine Dipstick-Ancillary; Complete Time: 19:17 EDAZ 11/15 19:15 Order name: Urine --Ancillary (enter results); Complete Time: 19:42 ds4 Administered Medications: No medications were administered Disposition: 11/16 06:39 Co-signature as Attending PhysicianRoyer DO I agree with the assessment and ms3 plan of care. Disposition Summary: 11/15/21 20:09 Discharge Ordered Location: Home [facility] Condition: Stable [facility] Diagnosis - Person with feared health complaint in whom no diagnosis is made [facility] Followup: [facility] - With: Franklin Greenwood MD - When: 2 - 3 days - Reason: Recheck today's complaints, Continuance of care, Re-evaluation by your physician Forms: - Medication Reconciliation Form [facility] - Thank You Letter abhijit - Antibiotic Education [facility] - Prescription Opioid Use [facility] Signatures: Dispatcher [employer] EDAZ Darrius Amezcua PA PA jmm Sims, Marcus, DO DO ms3 Burdick, Whitney, RN RN lr4
[2021-11-15 20:42] VITALS: BP 136/101; TEMP 98.7; O2SAT 98
== END 2021-11-15 20:29 | disposition home or self-care (01) ==
LOC: ER 18:39
DX: R10.84 Generalized abdominal pain (principal); Z32.02 Encounter for pregnancy test, result negative; Z71.1 Person with feared health complaint in whom no diagnosis is made
CPT/HCPCS: 81003; 81025; 99283

== ENCOUNTER 2021-11-16 20:58 | Emergency (ER) | payer OTHER ==
--- OUTSIDE RECORDS SUMMARY | 2021-11-16 21:00 | XMS REPORT | Continuity of Care Document ---
:1985 Author Organization [facility] Address [address] [place] [address] Care Team Providers Name Role Phone Unavailable Unavailable Unavailable Problems Condition Condition Condition Status Onset Resolution Last Treating Co mments Source Name Details Category Date Date Treatment Clinician Date Anxiety Anxiety [facility] Seizure Seizure [facility] Bipolar 1 Bipolar [address] Hypertensi Hypertensi Diagnosis [facility] Migraine Migraine Problem [facility] Allergies, Adverse Reactions, Alerts This patient has no known allergies or adverse reactions. Medications Ordered Filled Start Stop Current Ordering Indication Dosage Frequency Signature Comments Components Source Medication Medication Date Date Medication? Clinician (SIG) Name Name Xanax Xanax Yes Saurabh [address] [facility] Amlodipine Amlodipine Saurabh [address] Besylate Besylate 06-07 [facility] ent Clinics Procedures This patient has no known procedures. Encounters Start End Encounter Admission Attending Care Care Encounter Source Date/Time Date/Time Type Type Clinicians Facility Department ID 2018-06-07 2018-06-07 [facility] [id number] 11:00[facility] 11:00:00 t [facility] Family Medicine l Medicine Outpati ent Clinics 2018-06-02 2018-06-02 [facility] [id number] [facility] 14:31:00 14:31:00 t [email or web address] [place] [facility] Family Medicine l Medicine Outpati ent Clinics 2018-02-17 2018-02-17 [facility] [id number] 14:45:00 14:45:00 t [employer] [facility] 2018-01-19 2018-01-19 Outpatient Yoselyn Murguia [id number] [facility] 11:15:00 11:15:00 t [employer] [facility] ent [facility] Results This patient has no known results.
--- NOTE | 2021-11-16 21:51 | RAD REPORT ---
EXAM DESCRIPTION: US - Abdomen Exam Limited - 11/16/2021 9:43 pm CLINICAL HISTORY: ABD PAIN COMPARISON: No comparisons FINDINGS: The gallbladder demonstrates no gallstones. No pericholecystic fluid or gallbladder wall t hickening. The common bile duct is normal measuring 2 mm. The liver demonstrates no findings of intrahepatic biliary dilatation. IMPRESSION: Unremarkable examination.
--- NOTE | 2021-11-16 22:09 | ER ---
Nurse's Notes [facility] Name: Radha Grubbs Age: 36 yrs Sex: Female : 1985 Arrival Date: 11/16/2021 Time: 21:00 Bed 15 Private MD: Diagnosis: Upper abdominal pain, unspecified Presentation: 11/16 21:08 Chief complaint: Patient states: "I'm having chest pain and SOB that comes and goes. ab2 I'm also .". Coronavirus screen: Vaccine status: Patient reports being unvaccinated. Client denies travel out of the [place] in the last 14 days. At this time, the client does not indicate any symptoms associated with coronavirus-19. Ebola Screen: Patient negative for fever greater than or equal to 101.5 degrees Fahrenheit, and additional compatible Ebola Virus Disease symptoms Patient denies exposure to infectious person. Patient denies travel to an Ebola-affected area in the 21 days before illness onset. No symptoms or risks identified at this time. Initial Sepsis Screen: Does the patient meet any 2 criteria? No. Patient's initial sepsis screen is negative. Does the patient have a suspected source of infection? No. Patient's initial sepsis screen is negative. Risk Assessment: Do you want to hurt yourself or someone else? Patient reports no desire to harm self or others. Onset of symptoms is unknown. 21:08 Method Of Arrival: Law Enforcement: [facility] ab2 21:08 Acuity: TREVOR 3 ab2 Triage Assessment: 21:12 General: Appears in no apparent distress. uncomfortable, Behavior is cooperative. Pain: ab2 Complains of pain in chest. 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 Gait is steady. Respiratory: No deficits noted. Airway is patent Respiratory effort is even, unlabored, Respiratory pattern is regular, symmetrical. Historical: - Allergies: 21:11 No Known Allergies; ab2 - PMHx: 21:11 Anxiety; Bipolar disorder; diabetes mellitus; Hypertension; ab2 - PSHx: 21:11 None; ab2 - Immunization history:: Adult Immunizations up to date. - Social history:: Smoking status: Patient reports the use of cigarette tobacco products, denies chronic smoking, but will smoke occasionally, Patient uses alcohol, occasionally. Patient/guardian denies using street drugs. Screenin:19 Abuse screen: Denies threats or abuse. Nutritional screening: No deficits noted. st1 Tuberculosis screening: No symptoms or risk factors identified. Fall Risk None identified. No fall in past 12 months (0 pts). No secondary diagnosis (0 pts). No IV (0 pts). Ambulatory Aid- None/Bed Rest/Nurse Assist (0 pts). Gait- Normal/Bed Rest/Wheelchair (0 pts) Mental Status- Oriented to own ability (0 pts). Total Killian Fall Scale indicates No Risk (0-24 pts). Vital Signs: 21:08 BP 128 / 67; Pulse 99; Resp 16; Temp 97.9(TE); Pulse Ox 98% on R/A; Weight 118.39 kg; ab2 Height 5 ft. 7 in. (170.18 cm); Pain 5/10; 21:19 BP 111 / 56; Pulse 96; Resp 16; Pulse Ox 99% on R/A; Pain 5/10; st1 22:18 BP 110 / 60; Pulse 85; Resp 16; Pulse Ox 100% on R/A; st1 21:08 Body Mass Index 40.88 (118.39 kg, 170.18 cm) ab2 ED Course: 21:00 Patient arrived in ED. kc5 21:04 Jennifer Butler FNP-C is PHCP. kb 21:04 Vikram Verma MD is Attending Physician. kb 21:11 Triage completed. ab2 21:12 Arm band placed on right wrist. ab2 21:13 Lynne Hansen, SLAVA is Primary Nurse. st1 21:19 Bed in low position. Side rails up X 1. Security at bedside. [place] [employer] AT THE st1 BEDSIDE. Pulse ox on. NIBP on. Head of bed elevated. 21:21 THE PATIENT REFUSED LABS, SHE REFUSED TO ALLOW ME TO PLACE HER ARM BAND ON HER, SHE IS st1 REFUSING TO BE STUCK BY ANY NEEDLE. 21:21 No provider procedures requiring assistance completed. st1 21:44 US Abdomen Limited In Process Unspecified. EDMS 22:17 Patient did not have IV access during this emergency room visit. st1 Administered Medications: 21:34 Not Given (Patient Refused): Ibuprofen 800 mg PO once st1 Outcome: 22:09 Discharge ordered by MD. lundy 22:17 Discharged to Law Enforcement st1 22:17 Condition: good 22:17 Discharge instructions given to patient, police, Instructed on discharge instructions, follow up and referral plans. Demonstrated understanding of instructions. 22:19 Patient left the ED. st1 Signatures: Dispatcher [employer] EDMS Jennifer Butler, GAUGE CONTROLLER-C GAUGE CONTROLLER-Janett Holley kc5 Brandon Lundy 2 Lynne Hansen, RN RN st1
--- NOTE | 2021-11-16 22:09 | EDPHYS ---
Physician Documentation [facility] Name: Radha Grubbs Age: 36 yrs Sex: Female : 1985 Arrival Date: 11/16/2021 Time: 21:00 Bed 15 Private MD: ED Physician Vikram Verma HPI: 11/16 22:07 This 36 yrs old Black Female presents to ER via Law Enforcement with complaints of kb Medical Clearance. 22:07 The patient presents with abdominal pain in the upper abdomen. Onset: The kb symptoms/episode began/occurred "a while ago". The symptoms do not radiate. Associated signs and symptoms: none. The symptoms are described as constant. Modifying factors: The symptoms are alleviated by nothing, the symptoms are aggravated by nothing. Severity of pain: At its worst the pain was moderate in the emergency department the pain is unchanged. The patient has not experienced similar symptoms in the past. The patient has not recently seen a physician. Pt reports wheezing at night, shortness of breath at times, upper abd pain and back pain that started some time ago. . Historical: - Allergies: 21:11 No Known Allergies; ab2 - PMHx: 21:11 Anxiety; Bipolar disorder; diabetes mellitus; Hypertension; ab2 - PSHx: 21:11 None; ab2 - Immunization history:: Adult Immunizations up to date. - Social history:: Smoking status: Patient reports the use of cigarette tobacco products, denies chronic smoking, but will smoke occasionally, Patient uses alcohol, occasionally. Patient/guardian denies using street drugs. ROS: 22:06 Constitutional: Negative for fever, chills, and weight loss. kb 22:06 Respiratory: Positive for shortness of breath, wheezing, Negative for cough, dyspnea on exertion, hemoptysis, orthopnea, pleurisy. 22:06 Abdomen/GI: Positive for abdominal pain, Negative for nausea, vomiting, and diarrhea. 22:06 Back: Positive for pain at rest, pain with movement. 22:06 All other systems are negative. Exam: 22:06 Constitutional: This is a well developed, well nourished patient who is awake, alert, kb and in no acute distress. Head/Face: Normocephalic, atraumatic. ENT: Moist Mucous membranes Cardiovascular: Regular rate and rhythm with a normal S1 and S2. No gallops, murmurs, or rubs. No pulse deficits. Respiratory: Respirations even and unlabored. No increased work of breathing. Talking in full sentences Skin: Warm, dry with normal turgor. Normal color. MS/ Extremity: Pulses equal, no cyanosis. Neurovascular intact. Full, normal range of motion. Neuro: Awake and alert, GCS 15, oriented to person, place, time, and situation. Moves all extremities. Normal gait. 22:06 Abdomen/GI: Inspection: abdomen appears normal, Bowel sounds: normal, in all quadrants, Palpation: soft, in all quadrants, mild abdominal tenderness, in the right upper quadrant and left upper quadrant. Vital Signs: 21:08 BP 128 / 67; Pulse 99; Resp 16; Temp 97.9(TE); Pulse Ox 98% on R/A; Weight 118.39 kg; ab2 Height 5 ft. 7 in. (170.18 cm); Pain 5/10; 21:19 BP 111 / 56; Pulse 96; Resp 16; Pulse Ox 99% on R/A; Pain 5/10; st1 22:18 BP 110 / 60; Pulse 85; Resp 16; Pulse Ox 100% on R/A; st1 21:08 Body Mass Index 40.88 (118.39 kg, 170.18 cm) ab2 MDM: 21:13 Patient medically screened. kb 21:18 Data reviewed: vital signs, nurses notes. Data interpreted: Pulse oximetry: on room air kb is 98 %. Interpretation: normal. ED course: Pt refuses blood work. States "I don't do needles. We can just do an ultrasound.". 22:05 Counseling: I had a detailed discussion with the patient and/or guardian regarding: the kb historical points, exam findings, and any diagnostic results supporting the discharge/admit diagnosis, radiology results, the need for outpatient follow up, a family practitioner, to return to the emergency department if symptoms worsen or persist or if there are any questions or concerns that arise at home. 11/16 21:18 Order name: US Abdomen Limited; Complete Time: 22:00 kb 11/16 21:12 Order name: EKG; Complete Time: 21:13 kb 11/16 21:12 Order name: Cardiac monitoring; Complete Time: 21:34 kb 11/16 21:12 Order name: EKG - Nurse/Tech; Complete Time: 21:34 kb 11/16 21:12 Order name: IV Saline Lock kb 11/16 21:12 Order name: Labs collected and sent kb 11/16 21:12 Order name: O2 Per Protocol; Complete Time: 21:23 kb 11/16 21:12 Order name: O2 Sat Monitoring; Complete Time: 21:23 kb Administered Medications: 21:34 Not Given (Patient Refused): Ibuprofen 800 mg PO once st1 Disposition: 11/17 01:16 Co-signature as Attending Physician, Vikram Verma MD. [email or web address] Disposition Summary: 11/16/21 22:09 Discharge Ordered Location: [employer] Enforcement kb Condition: Stable kb Diagnosis - Upper abdominal pain, unspecified kb Followup: kb - With: Emergency Department - When: As needed - Reason: Worsening of condition Followup: kb - With: Private Physician - When: 2 - 3 days - Reason: Recheck today's complaints, Continuance of care, Re-evaluation by your physician Discharge Instructions: - Discharge Summary Sheet kb - Abdominal Pain, Adult, [id number] kb Forms: - Medication Reconciliation Form kb - Thank You Letter kb - Antibiotic Education kb - Prescription Opioid Use kb Signatures: Dispatcher [employer] EDJennifer Peguero, HEALTH PROFESSIONAL-C HEALTH PROFESSIONAL-Vikram Sampson MD MD 7 Brandon Lundy Shellie RN st1
[2021-11-16 22:25] VITALS: TEMP 97.9
[2021-11-16 22:28] VITALS: BP 110/60; O2SAT 100
--- NOTE | 2021-11-18 09:28 | EKG ---
Test Date: 2021-11-16 Test Time: 21:30:46 Chemical Research Technician: KATIE MEASUREMENT RESULTS: Intervals: Rate: 93 HI: 144 QRSD: 86 QT: 354 QTc: 440 [place]: P: 110 HI: 144 QRS: 160 T: 119 INTERPRETIVE STATEMENTS: Suspect arm lead reversal, interpretation assumes no reversal Normal sinus rhythm Lateral infarct, age undetermined Abnormal ECG Compared to ECG 08/15/2018 20:56:07 Myocardial infarct finding now present Electronically Signed On 11-18-21 09:25:55 CDT by Ruben Cox
== END 2021-11-16 22:19 ==
LOC: ER 20:58
DX: R10.10 Upper abdominal pain, unspecified (principal); I10 Essential (primary) hypertension; F17.210 Nicotine dependence, cigarettes, uncomplicated
CPT/HCPCS: 76705; 93005; 99284

== ENCOUNTER 2022-02-27 09:02 | Emergency (ER) | payer OTHER ==
[2022-02-27 09:24] LABS: Urine Blood 3+ (Negative); Urine Glucose Trace (Negative); Urine Protein 2+ (Negative); Urine Specific Gravity 1.025 (1.005-1.030)
--- NOTE | 2022-02-27 09:24 | ER ---
Nurse's Notes [facility] Name: Radha Grubbs Age: 36 yrs Sex: Female : 1985 Arrival Date: 02/27/2022 Time: 09:06 Bed 14 Private MD: Diagnosis: UTI/ Urinary tract infection, site not specified Presentation: 02/27 09:07 Chief complaint: Patient states: patient is initially reluctant to discuss chief ap3 complaint with nurse. she then states she needs x-rays because she has pain all over and she doesn't know where exatly. She has pain in her arm, her toe, her legs. Patient states she hasn't eaten since this morning so she is dizzy. patient then pulled out a pair of dirty thermal pants from her britches to say that is what she has been using incase she starts bleeding. Coronavirus screen: At this time, the client does not indicate any symptoms associated with coronavirus-19. Ebola Screen: No symptoms or risks identified at this time. Initial Sepsis Screen: Does the patient meet any 2 criteria? No. Patient's initial sepsis screen is negative. Does the patient have a suspected source of infection? No. Patient's initial sepsis screen is negative. Risk Assessment: Do you want to hurt yourself or someone else? Patient reports no desire to harm self or others. Onset of symptoms was February 27, 2022. 09:07 Method Of Arrival: Law Enforcement: [facility] ap3 09:07 Acuity: TREVOR 4 ap3 Triage Assessment: 09:10 General: Appears unkempt, Behavior is anxious. Pain: Complains of pain in "all over". ap3 Neuro: Level of Consciousness is awake, alert, obeys commands, Oriented to person, place, time, Gait is steady. Cardiovascular: Patient's skin is warm and dry. Respiratory: Airway is patent Respiratory effort is even, unlabored, Respiratory pattern is regular, symmetrical. GAS MANAGER: 09:26 LMP 02/27/2022 ap3 Historical: - Allergies: 09:10 No Known Allergies; ap3 - PMHx: 09:10 Anxiety; Bipolar disorder; diabetes mellitus; Hypertension; ap3 - Immunization history:: Client reports receiving the 1st dose of the Covid vaccine. - Social history:: Smoking status: Patient denies any tobacco usage or history of. Screenin:11 Abuse screen: Denies threats or abuse. Nutritional screening: No deficits noted. ap3 Tuberculosis screening: No symptoms or risk factors identified. Fall Risk None identified. Vital Signs: 09:15 BP 129 / 89; ap3 09:17 Pulse Ox 99% ; Weight 83.91 kg; Height 5 ft. 6 in. (167.64 cm); ap3 09:17 Body Mass Index 29.86 (83.91 kg, 167.64 cm) ap3 ED Course: 09:06 Patient arrived in ED. ss 09:06 Royer Mendez DO is Attending Physician. ms3 09:07 Cinthia Maldonado, RN is Primary Nurse. ap3 09:10 Triage completed. ap3 09:11 Arm band placed on right wrist. ap3 09:11 Patient has correct armband on for positive identification. Pulse ox on. NIBP on. Door ap3 closed. Noise minimized. 09:23 Nolan Mckinnye DO is Referral Physician. ms3 09:26 No provider procedures requiring assistance completed. Patient did not have IV access ap3 during this emergency room visit. Administered Medications: No medications were administered Medication: 09:26 VIS not applicable for this client. ap3 Outcome: 09:24 Discharge ordered by MD. ms3 09:26 Discharged to Law Enforcement ap3 09:26 Condition: good 09:26 Discharge instructions given to police, Instructed on discharge instructions, follow up and referral plans. medication usage, Demonstrated understanding of instructions, follow-up care, medications, Prescriptions given X 1. 09:35 Patient left the ED. ap3 Signatures: Estrellita Tolliver RN RN Cinthia Maldonado RN RN ap3 Royer Mendez DO DO ms3
--- NOTE | 2022-02-27 09:24 | EDPHYS ---
Physician Documentation [facility] Name: Radha Grubbs Age: 36 yrs Sex: Female : 1985 Arrival Date: 02/27/2022 Time: 09:06 Bed 14 Private MD: ED Physician Royer Mendez HPI: 02/27 09:32 This 36 yrs old Black Female presents to ER via Law Enforcement with complaints of ms3 dysuria. 09:32 The patient presents with urinary symptoms, dysuria, frequency. Onset: The ms3 symptoms/episode began/occurred last week. Modifying factors: The symptoms are alleviated by nothing, the symptoms are aggravated by nothing. Associated signs and symptoms: The patient has no apparent associated signs or symptoms. Severity of symptoms: At their worst the symptoms were mild, in the emergency department the symptoms are unchanged. PRIMARY SUBSTANCE ABUSE COUNSELOR: 09:26 LMP 02/27/2022 ap3 Historical: - Allergies: 09:10 No Known Allergies; ap3 - PMHx: 09:10 Anxiety; Bipolar disorder; diabetes mellitus; Hypertension; ap3 - Immunization history:: Client reports receiving the 1st dose of the Covid vaccine. - Social history:: Smoking status: Patient denies any tobacco usage or history of. ROS: 09:32 Positive for urinary symptoms. ms3 09:32 Constitutional: Negative for fever, and chills. Neck: Negative for injury, pain, and swelling, Cardiovascular: Negative for chest pain, and palpitations. Respiratory: Negative for shortness of breath, cough, wheezing, and pleuritic chest pain, Abdomen/GI: Negative for abdominal pain, nausea, vomiting, diarrhea, and constipation, Skin: Negative for injury, rash, and discoloration, Neuro: Negative for headache, weakness, numbness, tingling. 09:32 All other systems are negative. Exam: 09:32 Constitutional: This is a well developed, well nourished patient who is awake, alert, ms3 and in no acute distress. Head/Face: Normocephalic, atraumatic. Neck: Trachea midline, no cervical lymphadenopathy. Supple, full range of motion without nuchal rigidity, or vertebral point tenderness. No Meningismus. Chest/axilla: Normal chest wall appearance and motion. Nontender with no deformity. Cardiovascular: Regular rate and rhythm with a normal S1 and S2. No gallops, murmurs, or rubs. Normal PMI, no JVD. No pulse deficits. Respiratory: Lungs have equal breath sounds bilaterally, clear to auscultation and percussion. No rales, rhonchi or wheezes noted. No increased work of breathing, no retractions or nasal flaring. Abdomen/GI: Soft, non-tender, with normal bowel sounds. No distension or tympany. No guarding or rebound. No evidence of tenderness throughout. Back: No spinal tenderness. No costovertebral tenderness. Full range of motion. Psych: Awake, alert, with orientation to person, place and time. Behavior, mood, and affect are within normal limits. Vital Signs: 09:15 BP 129 / 89; ap3 09:17 Pulse Ox 99% ; Weight 83.91 kg; Height 5 ft. 6 in. (167.64 cm); ap3 09:17 Body Mass Index 29.86 (83.91 kg, 167.64 cm) ap3 MDM: 09:17 Patient medically screened. ms3 09:32 Differential diagnosis: urinary tract infection. Differential diagnosis: Dysuria. Data ms3 reviewed: vital signs, nurses notes. Counseling: I had a detailed discussion with the patient and/or guardian regarding: the historical points, exam findings, and any diagnostic results supporting the discharge/admit diagnosis, lab results, the need for outpatient follow up, to return to the emergency department if symptoms worsen or persist or if there are any questions or concerns that arise at home. ED course: Discussed labs, physical exam findings with patient. Patient to follow-up with primary care physician in 2 to 3 days. Patient understands and agrees with plan. All questions were answered. Return precautions discussed include worsening symptoms, or any other concerns. On reevaluation patient is alert and oriented x4, in no apparent distress, nontoxic-appearing, speaking full sentences, ambulatory in emergency department.. 02/27 09:24 Order name: Urine Dipstick-Ancillary; Complete Time: 09:31 EDMS 02/27 09:18 Order name: Urine Dipstick-Ancillary (obtain specimen); Complete Time: 09:24 ms3 Administered Medications: No medications were administered Disposition Summary: 02/27/22 09:24 Discharge Ordered Location: Home ms3 Condition: Stable ms3 Diagnosis - UTI/ Urinary tract infection, site not specified ms3 Followup: ms3 - With: Nolan Mckinney DO - When: - Reason: Recheck today's complaints Discharge Instructions: - Discharge Summary Sheet ms3 - Urinary Tract Infection, Adult ms3 Forms: - Medication Reconciliation Form ms3 - Thank You Letter ms3 - Antibiotic Education ms3 - Prescription Opioid Use ms3 Prescriptions: - Macrobid 100 mg Oral Capsule - take 1 capsule by ORAL route every 12 hours for 10 days; 20 capsule; Refills: ms3 0, Product Selection Permitted Signatures: Cinthia Maldonado RN RN ap3 Royer Mendez DO DO ms3
[2022-02-27 09:51] VITALS: BP 129/89
[2022-02-27 10:58] VITALS: O2SAT 99
== END 2022-02-27 09:35 | disposition home or self-care (01) ==
LOC: ER 09:02
DX: N39.0 Urinary tract infection, site not specified (principal); I10 Essential (primary) hypertension
CPT/HCPCS: 81003

== ENCOUNTER 2022-03-29 05:29 | Emergency (ER) | payer OTHER ==
--- OUTSIDE RECORDS SUMMARY | 2022-03-29 05:32 | XMS REPORT | Continuity of Care Document ---
:1985 Author Organization [facility] t Address [facility]ly [facility] [place] [address] Care Team Providers Name Role Phone OSIRIS ARMSTRONG Attending Clinician Unavailable Payers Payer Name Policy Type Policy Number Effective Date Expiration Date Renee MA [facility] [id number] 2021 MEDICARE COMPLETE 00:00:00 TP24 QUALIFIED [id number] 2019 MEDICARE 00:00:00 BENEFICIARY Problems Condition Condition Condition Status Onset Resolution Last Treating Co mments Source Name Details Category Date Date Treatment Clinician Date Anxiety Anxiety Problem Active [facility] Seizure Seizure Problem Active [facility] Bipolar 1 Bipolar 1 Problem Active Com mon disorder disorder [facility] Hypertensi Hypertensi Diagnosis Active Common on on [facility] Migraine Migraine Problem Active Commo n [facility] Allergies, Adverse Reactions, Alerts This patient has no known allergies or adverse reactions. Medications Ordered Filled Start Stop Current Ordering Indication Dosage Frequency Signature Comments Components Source Medication Medication Date Date Medication? Clinician (SIG) Name Name Xanax Xanax Yes Saurabh 1 tablet Common Ray [facility] Amlodipine Amlodipine 2018- No Saurabh 1 tablet Common Besylate Besylate 10-15 Ray Spiri t 00:00 - CHI :00 [facility] Procedures This patient has no known procedures. Encounters Start End Encounter Admission Attending Care Care Encounter Source Date/Time Date/Time Type Type Clinicians Facility Department ID 2021-11-07 2021-11-07 Emergency [facility] [id number] [place] 01:14:00 13:10:00 [facility] 2021-11-07 2021-11-07 Emergency 1 [facility] [id number] [place] 01:14:00 01:14:00 [facility] 2018-06-07 2018-06-07 Outpatient Yoselyn [place] [id number] [place] 11:00:00 11:00:00 t [facility] [address] [facility] 2018-06-02 2018-06-02 Outpatient Yoselyn [place] [id number] [place] 14:31:00 14:31:[address] [facility] 2018-02-17 2018-02-17 Outpatient Yoselyn [place] [id number] Common 14:45:00 14:45:[address] [facility] 2018-01-19 2018-01-19 Outpatient Yoselyn [place] [id number] Common 11:15:00 11:15:[address] [facility] Results Test Description Test Time Test Comments Results Result Comments Source SARS-CoV-2 RNA Resp Ql PEGGY+probe 2021-11-07 08:29:12 Test Item Value Reference Range Interpretation Comme nts Hospitalized? (test code = 69274-9) ICU? (test code = 68817-0) No Symptomatic as defined by CDC? No (test code = 49496-0) Employed in Healthcare? (test No code = 41992-4) Resident in a congregate care No setting (including nursing homes, residential care for people with intellectual and developmental disabilities, psychiatric treatment facilities, group homes, board and care homes, homeless mcfp, foster care or other): (test code = 72468-4) ? (test code = No 80492-3) SARS-CoV-2 RNA Resp Ql NOT DETECTED Not Detected INTER PRETATION: No PEGGY+probe (test code = [place] [address]-9) SARS-CoV-2 Khalida navirus (COVID-19) were present in this patient's sample by this test. A no t detected result does not exclude the possibility of active infection with this virus due to other fa ctors that may affect the results such as a poorly col lected sample, viral t iters below the limit of de tection of the assay, and the infrequent poss ibility of inhibitors in t he sample. This result lali uld be interpreted in conjunction with clinical, radiographic, a nd other laboratory find ings and should not be u sed as the sole indicator of active infection with SARS-CoV-2 Coronavirus ([place] VID-19). COMMENT: This [employer] Xpert Xpress SARS-CoV-2 real-time PCR test was developed, and its performance characteristics determined by the [facility] molecular diagnostic Laboratory and is acceptablefor patient testing. It has been approved for patient testing by the FDA under the Emergency Use Auth orization pathway. This laboratory is certified under federal CLIA regulations to perform this type of high complexity testing.
[2022-03-29 06:02] LABS: Urine Blood Negative (Negative); Urine Glucose Negative (Negative); Urine Protein Negative (Negative); Urine pH 5.5 (5.0-7.0)
[2022-03-29 06:09] LABS: Absolute Lymphocytes (CBC) 3.7 K/uL (0.7-4.9); MCV 79.9 fL (80-100); RBC Red Blood Cell Count 4.13 M/uL (3.86-4.86)
[2022-03-29 06:14] LABS: Protime INR 0.96
[2022-03-29 06:25] LABS: Barbiturates NEGATIVE (NEGATIVE); Benzodiazepines POSITIVE (NEGATIVE); Cocaine NEGATIVE (NEGATIVE); METHAMPHETAM NEGATIVE (NEGATIVE); Methadone NEGATIVE (NEGATIVE); Opiates NEGATIVE (NEGATIVE); Phencyclidine NEGATIVE (NEGATIVE); THC Cannibis POSITIVE (NEGATIVE)
[2022-03-29] MEDS ORDERED: NA CHLORIDE 0.9% 1,000 ML ONE (06:33)
[2022-03-29] MEDS ORDERED: FAMOTIDINE 20 MG/2 ML VIAL IV ONE (06:33)
[2022-03-29] MEDS ORDERED: PROMETHAZINE INJ 25 MG/ML AMP ONE (06:33)
[2022-03-29 06:42] LABS: ALT/SGPT 25 U/L (12-78); AST/SGOT 18 U/L (15-37); Albumin 3.2 g/dL (3.4-5.0); Alkaline Phosphatase 77 U/L (45-117); BUN Blood Urea Nitrogen 15 mg/dL (7-18); Bicarbonate 23 mmol/L (21-32); Bilirubin Total 0.2 mg/dL (0.2-1.0); Glomerular Filtration Rate 84 ml/min (=/>90); Glucose Level 90 mg/dL (74-106); Potassium 3.9 mmol/L (3.5-5.1); Protein, Total 7.3 g/dL (6.4-8.2); Sodium Level 138 mmol/L (136-145)
[2022-03-29 06:50] LABS: Bilirubin Direct < 0.1 mg/dL (0-0.2)
--- NOTE | 2022-03-29 08:03 | ER ---
Nurse's Notes [facility] Name: Radha Grubbs Age: 36 yrs Sex: Female : 1985 Arrival Date: 03/29/2022 Time: 05:30 Bed 5 Private MD: Diagnosis: Vomiting;Bipolar disorder, unspecified Presentation: 03/29 05:30 Chief complaint: EMS states: Pt reports Shoulder and back pain with N/V. Possibly jb4 . Coronavirus screen: At this time, the client does not indicate any symptoms associated with coronavirus-19. Ebola Screen: No symptoms or risks identified at this time. Risk Assessment: Do you want to hurt yourself or someone else? Patient reports no desire to harm self or others. Onset of symptoms. Onset of symptoms was March 29, 2022. Transition of care: patient was not received from another setting of care. 05:30 Method Of Arrival: EMS: [facility] 05:30 Acuity: TREVOR 3 jb4 05:36 Chief complaint: Patient states: "I have been having back and shoulder pain. It been tw5 going on for two years but I just couldn't take it anymore. I also feel dizzy and been vomiting for the past day. Also I might be , but my pregnancys are weird sometimes they don't show up in the urine or the blood or the ultrasound." Patient also refused to sign the EMS HIPPA paperwork. Initial Sepsis Screen: Does the patient meet any 2 criteria? HR > 90 bpm. Does the patient have a suspected source of infection? No. Patient's initial sepsis screen is negative. Triage Assessment: 05:36 General: Appears obese, Behavior is anxious, suspecious. Pain: Complains of pain in tw5 back, chest, anterior aspect of right shoulder, posterior aspect of left shoulder, right leg and left leg Pain currently is 9 out of 10 on a pain scale. STUDY MANAGER: 05:36 LMP 01/27/2022 tw5 Historical: - Allergies: 05:31 No Known Allergies; jb4 - Home Meds: 05:31 Alprazolam Oral [Active]; olanzapine oral [Active]; jb4 - PMHx: 05:31 Bipolar disorder; diabetes mellitus; Anxiety; Hypertension; Schizophrenia; jb4 - Immunization history:: Client reports having NOT received the Covid vaccine. - Social history:: Smoking status: Patient reports the use of cigarette tobacco products, smokes one pack cigarettes per day. Screenin:39 Abuse screen: Denies threats or abuse. Denies injuries from another. Nutritional tw5 screening: No deficits noted. Tuberculosis screening: No symptoms or risk factors identified. Fall Risk Assessment: 06:00 General: Appears in no apparent distress. uncomfortable, Behavior is calm, cooperative, jb4 appropriate for age. Pain: Complains of pain in Generalized body pains Pain does not radiate. Pain currently is 9 out of 10 on a pain scale. Quality of pain is described as burning, tingling. Neuro: Level of Consciousness is awake, alert, obeys commands, Oriented to person, place, time, situation. Cardiovascular: Patient's skin is warm and dry. Respiratory: Airway is patent Respiratory effort is even, unlabored, Respiratory pattern is regular, symmetrical. GI: Reports nausea, vomiting. Derm: Skin is intact, Skin is dry, Skin is normal, Skin temperature is warm. Musculoskeletal: Circulation, motion, and sensation intact. Range of motion: intact in all extremities. 07:41 Reassessment: Patient appears in no apparent distress at this time. No changes from jl7 previously documented assessment. Pain: Complains of pain in in addition to previous pain reported, pt reports waking with pain to left pink, denies trauma, requesting xray to make sure it's not broken. ERD notified and to bedside. Neuro: Level of Consciousness is awake, alert, obeys commands, Oriented to person, place, time, situation. 08:00 Reassessment: Pt refusing CT scan at this time. jl7 Vital Signs: 05:36 BP 154 / 105; Pulse 126; Resp 18; Temp 97.8; Pulse Ox 100% ; Weight 110.22 kg; Height 5 tw5 ft. 7 in. (170.18 cm); Pain 9/10; 06:47 BP 134 / 99; Pulse 106; Resp 24 S; Pulse Ox 100% ; jb4 07:41 BP 133 / 94; Pulse 110; Resp 15; Pulse Ox 100% ; jl7 05:36 Body Mass Index 38.06 (110.22 kg, 170.18 cm) tw5 ED Course: 05:30 Patient arrived in ED. jb4 05:31 Triage completed. jb4 05:31 Arm band placed on right wrist. jb4 05:39 Hernán Nagy, RN is Primary Nurse. jb4 05:48 Vikram Verma MD is Attending Physician. 7 06:00 Urine Drug Screen Sent. jb4 06:00 Salicylate Sent. jb4 06:00 Ptt, Activated Sent. jb4 06:00 PT-INR Sent. jb4 06:00 Hepatic Function Sent. jb4 06:00 ETOH Level Sent. jb4 06:00 CBC with Diff Sent. jb4 06:00 Basic Metabolic Panel Sent. jb4 06:00 Acetaminophen Sent. jb4 07:17 Primary Nurse role handed off by Hernán Nagy RN 07:27 Attending Physician role handed off by Vikram Verma MD [facility] 07:27 Glen Vela MD is Attending Physician. [facility] 07:41 Claude Erazo RN is Primary Nurse. jl7 07:41 Patient has correct armband on for positive identification. Bed in low position. Call jl7 light in reach. Side rails up X 1. Pulse ox on. NIBP on. Warm blanket given. 08:00 No provider procedures requiring assistance completed. IV discontinued, intact, jl7 bleeding controlled, No redness/swelling at site. Pressure dressing applied. Administered Medications: 06:30 Drug: NS 0.9% 1000 ml Route: IV; Rate: 1000 ml; Site: right antecubital; jb4 06:30 Drug: Pepcid (famotidine) 20 mg Route: IVP; Site: right antecubital; jb4 06:32 Drug: Phenergan (promethazine) 12.5 mg Route: IVP; Site: right antecubital; jb4 06:40 Not Given (Patient Refused): morphine 4 mg IVP once over 4 mins jb4 Medication: 07:41 VIS not applicable for this client. jl7 Outcome: 08:02 Discharge ordered by . [facility] 08:10 Discharged to home ambulatory. jl7 08:10 Condition: stable 08:10 Discharge instructions given to patient, pt signed AMA for Instructed on discharge instructions, follow up and referral plans. medication usage, Demonstrated understanding of instructions, follow-up care, medications, Prescriptions given X 2. 08:10 Patient left the ED. jl7 Signatures: Glen Vela MD MD cha Bryson, James, RN RN [facility] Claude Erazo SLAVA RN jl7 Thuy Clemnes Maurice, MD MD mh7 Mary Colon tw5
--- NOTE | 2022-03-29 08:03 | EDPHYS ---
Physician Documentation [facility] Name: Radha Grubbs Age: 36 yrs Sex: Female : 1985 Arrival Date: 03/29/2022 Time: 05:30 Bed 5 Private MD: JOSEY Physician Glen Vela HPI: 03/29 05:50 This 36 yrs old Black Female presents to ER via EMS with complaints of Back Pain. mh7 05:50 The patient presents with pain that is acute, with no known mechanism of injury. The mh7 symptoms are located in the low back. Onset: The symptoms/episode began/occurred 1 week(s) ago. The pain radiates to the abdomen. Associated signs and symptoms: Pertinent positives: abdominal pain, nausea, vomiting, shoulder pain, Pertinent negatives: chest pain, constipation, dysuria, fever, headache, hematuria, incontinence, numbness, tingling, urinary retention, weakness. The problem was sustained from unknown cause. Modifying factors: The patient symptoms are alleviated by nothing, the patient symptoms are aggravated by movement. Severity of symptoms: At their worst the symptoms were moderate, 3 day(s) ago, in the emergency department the symptoms are unchanged. PRODUCTION SANITIZER: 05:36 LMP 01/27/2022 tw5 Historical: - Allergies: 05:31 No Known Allergies; jb4 - Home Meds: 05:31 Alprazolam Oral [Active]; olanzapine oral [Active]; jb4 - PMHx: 05:31 Bipolar disorder; diabetes mellitus; Anxiety; Hypertension; Schizophrenia; jb4 - Immunization history:: Client reports having NOT received the Covid vaccine. - Social history:: Smoking status: Patient reports the use of cigarette tobacco products, smokes one pack cigarettes per day. ROS: 05:50 Constitutional: Negative for fever, chills, and weight loss, Eyes: Negative for injury, mh7 pain, redness, and discharge, ENT: Negative for injury, pain, and discharge, Neck: Negative for injury, pain, and swelling, Cardiovascular: Negative for chest pain, palpitations, and edema, Respiratory: Negative for shortness of breath, cough, wheezing, and pleuritic chest pain, : Negative for injury, bleeding, discharge, and swelling, MS/Extremity: Negative for injury and deformity, Skin: Negative for injury, rash, and discoloration, Neuro: Negative for headache, weakness, numbness, tingling, and seizure, Psych: Negative for depression, anxiety, suicide ideation, homicidal ideation, and hallucinations, Allergy/Immunology: Negative for hives, rash, and allergies, Endocrine: Negative for neck swelling, polydipsia, polyuria, polyphagia, and marked weight changes, Hematologic/Lymphatic: Negative for swollen nodes, abnormal bleeding, and unusual bruising. Exam: 05:50 Head/Face: Normocephalic, atraumatic. Eyes: Pupils equal round and reactive to light, mh7 extra-ocular motions intact. Lids and lashes normal. Conjunctiva and sclera are non-icteric and not injected. Cornea within normal limits. Periorbital areas with no swelling, redness, or edema. Neck: Trachea midline, no thyromegaly or masses palpated, and no cervical lymphadenopathy. Supple, full range of motion without nuchal rigidity, or vertebral point tenderness. No Meningismus. Chest/axilla: Normal chest wall appearance and motion. Nontender with no deformity. No lesions are appreciated. 05:50 Respiratory: Lungs have equal breath sounds bilaterally, clear to auscultation and percussion. No rales, rhonchi or wheezes noted. No increased work of breathing, no retractions or nasal flaring. 05:50 Skin: Warm, dry with normal turgor. Normal color with no rashes, no lesions, and no evidence of cellulitis. MS/ Extremity: Pulses equal, no cyanosis. Neurovascular intact. Full, normal range of motion. Neuro: Awake and alert, GCS 15, oriented to person, place, time, and situation. Cranial nerves II-XII grossly intact. Motor strength 5/5 in all extremities. Sensory grossly intact. Cerebellar exam normal. Normal gait. Psych: Awake, alert, with orientation to person, place and time. Behavior, mood, and affect are within normal limits. 05:50 Constitutional: The patient appears in no acute distress, alert, awake, uncomfortable. 05:50 Cardiovascular: Rate: tachycardic, Rhythm: regular, Pulses: no pulse deficits are appreciated, Heart sounds: normal, normal S1and S2, Edema: is not appreciated, JVD: is not appreciated. 05:50 Abdomen/GI: Inspection: obese Bowel sounds: normal, in all quadrants, Palpation: mild abdominal tenderness, in all quadrants, Indicators: McBurney's point is not tender, Cortes's sign is negative, Rovsing's sign is negative, Obturator sign is negative, Psoas sign is negative, Liver: no appreciated palpable abnormalities, Hernia: not appreciated. 05:50 Back: pain, that is moderate, of the lumbar area, left low back and right low back, normal spinal alignment noted, CVA tenderness, is absent, muscle spasm, is not present. 07:46 ECG was reviewed by the Attending Physician. nguyen 08:02 Musculoskeletal/extremity: DVT Exam: No signs of deep vein thrombosis. no pain, no nguyen swelling, no tenderness, negative Homans' sign noted on exam, no appreciated bluish discoloration, no erythema, no increased warmth. Vital Signs: 05:36 BP 154 / 105; Pulse 126; Resp 18; Temp 97.8; Pulse Ox 100% ; Weight 110.22 kg; Height 5 tw5 ft. 7 in. (170.18 cm); Pain 9/10; 06:47 BP 134 / 99; Pulse 106; Resp 24 S; Pulse Ox 100% ; jb4 07:41 BP 133 / 94; Pulse 110; Resp 15; Pulse Ox 100% ; jl7 05:36 Body Mass Index 38.06 (110.22 kg, 170.18 cm) tw5 MDM: 07:11 Transition of care: After a detail discussion of the patient's case, care is mh7 transferred to Glen Vela MD. 07:27 Patient medically screened. nguyen 07:39 Patient medically screened. nguyen 07:44 Differential diagnosis: Cholelithiasis chronic back pain, Fatigue Peptic Ulcer nguyen ruptured disc, sprain. Data reviewed: vital signs, nurses notes, lab test result(s), radiologic studies, CT scan. Data interpreted: nurse monitoring: rate is 106 beats/min, rhythm is regular, Pulse oximetry: on room air is 100 %. Test interpretation: by ED physician or midlevel provider: ECG, plain radiologic studies. Counseling: I had a detailed discussion with the patient and/or guardian regarding: the historical points, exam findings, and any diagnostic results supporting the discharge/admit diagnosis, lab results, radiology results, the need for outpatient follow up. 08:00 ED course: pt refsed ct pe, will not have vq scan, wont allow transfer, no venous nguyen doppler, want to sign out ama, patient is a and o x4, has full understanding , even if it occurs. 03/29 05:41 Order name: Acetaminophen; Complete Time: 06:54 tw03/29 05:41 Order name: Basic Metabolic Panel; Complete Time: 06:54 tw03/29 05:41 Order name: CBC with Diff; Complete Time: 06:54 tw5 03/29 05:41 Order name: ETOH Level; Complete Time: 06:54 tw03/29 05:41 Order name: Hepatic Function; Complete Time: 06:54 tw03/29 05:41 Order name: PT-INR; Complete Time: 06:54 tw03/29 05:41 Order name: Ptt, Activated; Complete Time: 06:54 tw03/29 05:41 Order name: Salicylate; Complete Time: 06:54 tw03/29 05:41 Order name: Urine Drug Screen; Complete Time: 06:54 tw03/29 06:02 Order name: Urine Dipstick-Ancillary; Complete Time: 06:05 EDMS 03/29 06:04 Order name: Troponin High Sensitivity; Complete Time: 07:42 mh7 03/29 06:08 Order name: D-Dimer; Complete Time: 07:33 mh7 03/29 06:11 Order name: Urine --Ancillary (enter results); Complete Time: 06:54 ds4 03/29 05:41 Order name: EKG; Complete Time: 05:41 tw5 03/29 05:41 Order name: EKG - Nurse/Tech; Complete Time: 05:50 tw03/29 05:41 Order name: IV Saline Lock; Complete Time: 06:00 tw03/29 05:41 Order name: Labs collected and sent; Complete Time: 06:00 tw03/29 05:41 Order name: Suicide Screening ([place]); Complete Time: 05:50 tw03/29 05:41 Order name: Urine Dipstick-Ancillary (obtain specimen); Complete Time: 06:00 tw5 03/29 06:00 Order name: Urine Test (obtain specimen); Complete Time: 06:00 jb4 03/29 06:55 Order name: CK; Complete Time: 08:00 mh7 03/29 07:01 Order name: TSH; Complete Time: 08:00 mh7 EC:46 Rate is 123 beats/min. Rhythm is regular. QRS Gray is Normal. NE interval is normal. nguyen QRS interval is normal. QT interval is normal. No Q waves. T waves are Normal. No ST changes noted. Clinical impression: Sinus tachycardia. Interpreted by me. Reviewed by me. Administered Medications: 06:30 Drug: NS 0.9% 1000 ml Route: IV; Rate: 1000 ml; Site: right antecubital; jb4 06:30 Drug: Pepcid (famotidine) 20 mg Route: IVP; Site: right antecubital; jb4 06:32 Drug: Phenergan (promethazine) 12.5 mg Route: IVP; Site: right antecubital; jb4 06:40 Not Given (Patient Refused): morphine 4 mg IVP once over 4 mins jb4 Disposition Summary: 03/29/22 08:02 Discharge Ordered Location: Home nguyen Problem: new nguyen Symptoms: have improved nguyen Condition: Stable nguyen Diagnosis - Vomiting nguyen - Bipolar disorder, unspecified nguyen Followup: nguyen - With: Private Physician - When: 2 - 3 days - Reason: Recheck today's complaints, Continuance of care, Re-evaluation by your physician Discharge Instructions: - Discharge Summary Sheet nguyen - Vomiting, Adult nguyen - Mixed Bipolar Disorder nguyen Forms: - Medication Reconciliation Form [facility] - Thank You Letter [facility] - Antibiotic Education nguyen - Prescription Opioid Use [facility] Prescriptions: - Pepcid 20 mg Oral Tablet - take 1 tablet by ORAL route every 12 hours for 21 days; 42 tablet; Refills: 0, [facility] Product Selection Permitted - Zofran 4 mg Oral Tablet - take 1 tablet by ORAL route every 12 hours As needed; 20 tablet; Refills: 0, [facility] Product Selection Permitted Signatures: Dispatcher [employer] Glen Gonzalez MD MD cha Bryson, James RN RN jb4 Vikram Verma MD MD 7 Mary Colon 5
[2022-03-29 08:19] VITALS: TEMP 97.8; O2SAT 100
[2022-03-29 08:26] VITALS: BP 133/94
--- NOTE | 2022-03-29 09:13 | EKG ---
Test Date: 2022-03-29 Test Time: 05:52:26 Chain Machine Operator: NIKOLE MEASUREMENT RESULTS: Intervals: Rate: 123 SC: 146 QRSD: 74 QT: 308 QTc: 440 [place]: P: 57 SC: 146 QRS: -9 T: 47 INTERPRETIVE STATEMENTS: Sinus tachycardia Possible Left atrial enlargement Borderline ECG Compared to ECG 11/16/2021 21:30:46 Sinus rhythm no longer present Myocardial infarct finding no longer present Electronically Signed On 03-29-22 09:12:35 CDT by Ruben Cox
== END 2022-03-29 08:10 | disposition home or self-care (01) ==
LOC: ER 05:29
DX: R11.10 Vomiting, unspecified (principal); F31.9 Bipolar disorder, unspecified; E11.9 Type 2 diabetes mellitus without complications; I10 Essential (primary) hypertension; F17.210 Nicotine dependence, cigarettes, uncomplicated
CPT/HCPCS: 93005; 85025; 80048; 36415; 80320; 82550; 80329 ×2; 81025; 85610; 85379; 80076; 85730; 84443; 81003; 84484; 80307; 96375; 96374; 99284; J2550; J7030

== ENCOUNTER → 2023-09-19 | Emergency (ER) | payer OTHER ==
[~2023-09-19] MED LIST: DIPHENHYDRAMINE 50 MG/ML VIAL ONE; LORazepam 2 MG/ML VIAL ONE; NA CHLORIDE 0.9% 1,000 ML ONE
[2023-09-19 11:52] LABS: Absolute Lymphocytes (CBC) 2.5 K/uL (0.7-4.9); Hematocrit 40.4 % (36.0-45.0); Lymphocytes % 26.5 % (15.3-44.8); MCV 82.6 fL (80-100); MPV 7.9 fL (7.6-11.3); Platelets 384 thou/uL (152-406); RBC Red Blood Cell Count 4.89 M/uL (3.86-4.86)
[2023-09-19 12:00] LABS: Protime INR 1.14
[2023-09-19 12:06] LABS: ALT/SGPT 43 U/L (13-56); Albumin 3.9 g/dL (3.4-5.0); Alkaline Phosphatase 64 U/L (45-117); BUN Blood Urea Nitrogen 20 mg/dL (7-18); Bicarbonate 25 mEq/L (21-32); Bilirubin Direct 0.1 mg/dL (0-0.2); Bilirubin Indirect, Calculated 0.7 mg/dL (0.2-0.8); Bilirubin Total 0.8 mg/dL (0.2-1.0); Creatine Phosphokinase 744 U/L (26-192); Glomerular Filtration Rate 72 ml/min (=/>90); Glucose Level 101 mg/dL (74-106); Sodium Level 138 mEq/L (136-145)
[2023-09-19 12:09] LABS: AST/SGOT 48 U/L (15-37); Potassium 4.6 mEq/L (3.5-5.1)
--- NOTE | 2023-09-19 14:43 | EDPHYS ---
Physician Documentation [facility] Name: Radha Grubbs Age: 38 yrs Sex: Female : 1985 Arrival Date: 09/19/2023 Time: 09:43 Bed 16 Private MD: ED Physician Stanislaw Estrada HPI: 09/19 09:52 This 38 yrs old Black Female presents to ER via [employer] with complaints of sb4 javi/AMS. 09:52 The patient presents to the emergency department with psychosis. Onset: The sb4 symptoms/episode began/occurred this morning. Past psychiatric history: Prior diagnosis: bipolar disorder, schizophrenia. 10:45 patient's mother called PD as patient has not slept in 4-5 days and is acting sb4 erratically. PD placed patient under PEGGY due to concern for her harming herself or others. patient is extremely combative upon arrival, delusional, although denies intent to harm herself or others. PAEDIATRICIAN: 09:51 LMP N/A - , Not mb9 Historical: - Allergies: 09:49 No Known Allergies; mb9 - PMHx: 09:49 Anxiety; Bipolar disorder; diabetes mellitus; Hypertension; Schizophrenia; mb9 - PSHx: 09:49 None; mb9 - Immunization history:: Adult Immunizations up to date. - Social history:: Smoking status: unknown. ROS: 09:52 Cardiovascular: Negative for chest pain, palpitations, and edema, sb4 09:52 Psych: Negative for homicidal ideation, suicidal ideation, 09:52 All other systems are negative, Exam: 09:52 Constitutional: The patient appears alert, awake, agitated, restless, unkempt, sb4 combative 09:59 Head/Face: Normocephalic, atraumatic. Eyes: Extra-ocular motions intact. Periorbital sb4 areas with no swelling, redness, or edema. Skin: Warm, dry with normal turgor. Normal color with no rashes, no lesions, and no evidence of cellulitis. MS/ Extremity: Pulses equal, no cyanosis. Neurovascular intact. Full, normal range of motion. 09:59 Psych: Behavior/mood is delirious, Affect is animated, Patient has no thoughts/intents to harm self or others. Judgement / Insight is impaired. yelling illogical thoughts at no one. patient is too combative to complete physical exam. Vital Signs: 09:47 Weight 83.91 kg; Height 5 ft. 6 in. ; mb9 10:50 BP 132 / 90; Pulse 108; Resp 18; Temp 98; Pulse Ox 99% on R/A; mb9 17:20 BP 128 / 84; Pulse 95; Resp 18; Pulse Ox 99% ; mb9 09:47 Body Mass Index 29.86 (83.91 kg, 167.64 cm) mb9 MDM: 09:46 Patient medically screened. sb4 09:53 Differential diagnosis: drug withdrawal. acute psychotic break, depression, psychosis sb4 secondary to non-compliance, manic episode. 10:45 Awaiting: labs results, patient is too combative to obtain blood work. sb4 14:40 Awaiting: labs results, urine results. sb4 14:41 Data reviewed: vital signs, nurses notes, lab test result(s), EKG, radiologic studies, sb4 I have discussed the patient's presentation/case with the attending Emergency Department Physician;. Care significantly affected by the following chronic conditions: Hypertension. Counseling: I had a detailed discussion with the patient and/or guardian regarding the historical points, exam findings, and any diagnostic results supporting the discharge/admit diagnosis, lab results, the need to transfer to another facility, [facility] does not immediately have the required specialist. 09/19 09:47 Order name: Acetaminophen; Complete Time: 12:19 09/19 09:47 Order name: Basic Metabolic Panel; Complete Time: 12:19 09/19 09:47 Order name: CBC with Diff; Complete Time: 11:57 09/19 09:47 Order name: ETOH Level; Complete Time: 12:19 09/19 09:47 Order name: Hepatic Function; Complete Time: 12:19 09/19 09:47 Order name: PT-INR; Complete Time: 12:07 09/19 09:47 Order name: Ptt, Activated; Complete Time: 12:07 09/19 09:47 Order name: Salicylate; Complete Time: 12:28 sb4 09/19 09:47 Order name: CK; Complete Time: 12:19 09/19 09:47 Order name: EKG; Complete Time: 09:48 sb4 09/19 09:47 Order name: EKG - Nurse/Tech; Complete Time: 11:45 sb4 09/19 09:47 Order name: IV Saline Lock; Complete Time: 11:45 sb4 09/19 09:47 Order name: Labs collected and sent; Complete Time: 11:45 sb4 09/19 09:47 Order name: Suicide Precautions; Complete Time: 09:52 sb4 09/19 09:47 Order name: Suicide Screening ([place]); Complete Time: 15:58 sb4 EC:54 Rate is 106 beats/min. Rhythm is regular, Sinus tachycardia. [place] interval is normal at sb4 154 msec. QRS interval is normal at 84 msec. QT interval is normal at 352 msec. No Q waves. T waves are Normal. No ST changes noted. Clinical impression: Sinus tachycardia, No evidence of ischemia, and right atrial enlargement. Interpreted by me. Reviewed by me. Administered Medications: 09:52 Drug: Geodon IM 20 mg IM once Route: IM; Site: right deltoid; mb9 10:26 Follow up: Response: No adverse reaction mb9 10:12 Drug: LORazepam IM 2 mg IM once Route: IM; Site: left deltoid; mb9 10:26 Follow up: Response: No adverse reaction mb9 10:57 Drug: diphenhydrAMINE IM 50 mg IM once Route: IM; Site: left deltoid; mb9 11:52 Follow up: Response: No adverse reaction mb9 12:34 Drug: NS 0.9% IV 1000 ml IV at 1 bolus Per protocol; 1000 mL bolus Route: IV; Rate: 1 mb9 bolus; Site: right antecubital; Disposition: 10:59 Co-signature as Attending Physician, Stanislaw Estrada MD I reviewed the patient's care rt provided by the Advanced Practice Provider and agree with the diagnosis and treatment plan. Disposition Summary: 09/19/23 14:42 Transfer Ordered Notes: Transfer Location: Psych Facility sb4 Reason: Higher level of care sb4 Condition: Fair sb4 Problem: an acute exacerbation sb4 Symptoms: are unchanged sb4 Accepting Physician: psychiatrist(09/19/23 17:21) mb9 Diagnosis - bipolar disorder with javi / acute psychosis sb4 Forms: - Medication Reconciliation Form sb4 - SBAR form sb4 Signatures: Dispatcher [employer] Zhane Gacria PA-C PA-C sb4 Indy Nguyen RN RN mb9 Stanislaw Estrada MD MD rt Corrections: (The following items were deleted from the chart) 10:46 09:59 Psych: Behavior/mood is delirious, Affect is animated, Patient has no sb4 thoughts/intents to harm self or others. Judgement / Insight is impaired. yelling illogical thoughts at no one. sb4 17:21 14:42 psychiatrist sb4 mb9
--- NOTE | 2023-09-19 14:43 | ER ---
Nurse's Notes [facility] Name: Radha Grubbs Age: 38 yrs Sex: Female : 1985 Arrival Date: 09/19/2023 Time: 09:43 Bed 16 Private MD: Diagnosis: bipolar disorder with javi / acute psychosis Presentation: 09/19 09:47 Chief complaint: [place] PD states, "she hasn't slept in 5 days, talking to self, and mb9 wouldn't move out from behind a car. She has zero homicidal or suicidal thoughts but is being physically aggressive to people around her.". Coronavirus screen: At this time, the client does not indicate any symptoms associated with coronavirus-19. Ebola Screen: No symptoms or risks identified at this time. Initial Sepsis Screen: Does the patient meet any 2 criteria? No. Patient's initial sepsis screen is negative. Does the patient have a suspected source of infection? No. Patient's initial sepsis screen is negative. Risk Assessment: Do you want to hurt yourself or someone else? Patient reports no desire to harm self or others. Onset of symptoms was September 19, 2023. 09:47 Acuity: TREVOR 2 mb9 09:47 Method Of Arrival: Law Enforcement: [facility] mb9 Triage Assessment: 09:50 General: Appears unkempt, Behavior is agitated, combative, restless. Pain: Denies pain. mb9 EENT: No signs and/or symptoms were reported regarding the EENT system. Neuro: Level of Consciousness is awake, Speech is rapid. . Cardiovascular: Patient's skin is warm and dry. Respiratory: Airway is patent Respiratory effort is even, unlabored, Respiratory pattern is regular, symmetrical. GI: No signs and/or symptoms were reported involving the gastrointestinal system. Derm: Skin is pink, warm \\T\\ dry. Musculoskeletal: Range of motion: intact in all extremities. ELECTRICIAN APPRENTICE: 09:51 LMP N/A - , Not mb9 Historical: - Allergies: 09:49 No Known Allergies; mb9 - PMHx: 09:49 Anxiety; Bipolar disorder; diabetes mellitus; Hypertension; Schizophrenia; mb9 - PSHx: 09:49 None; mb9 - Immunization history:: Adult Immunizations up to date. - Social history:: Smoking status: unknown. Screenin:57 [facility] ED Fall Risk Assessment (Adult) History of falling in the last 3 months, mb9 including since admission No falls in past 3 months (0 pts) Confusion or Disorientation No (0 pts) Intoxicated or Sedated No (0 pts) Impaired Gait No (0 pts) Mobility Assist Device Used No (0 pt) Altered Elimination No (0 pt) Score/Fall Risk Level 0 - 2 = Low Risk Oriented to surroundings, Maintained a safe environment, Educated pt \\T\\ family on fall prevention, incl call for assistance when getting out of bed. Abuse screen: Denies threats or abuse. Nutritional screening: No deficits noted. Tuberculosis screening: No symptoms or risk factors identified. Assessment: 09:44 Reassessment: unable to get VS at this time due to pt being physically aggressive, 9 attempting to kick and hit staff. 09:50 Reassessment: See C-SSRS screening form for further information. mb9 09:51 Reassessment: [place] PD at bedside. mb9 10:08 Reassessment: Pt climbing out of bed, spitting on the floor,and attempting to walk in mb9 hallway. Pt redirected to room. ERP notified. New orders at this time. 11:00 Reassessment: airway is patent, respirations are even and unlabored. SI precautions in mb9 place. Sitter at bedside. 12:00 Reassessment: Patient appears in no apparent distress at this time. No changes from mb9 previously documented assessment. Airway is patent. SI precautions in place. Sitter at bedside. 13:00 Reassessment: Patient appears in no apparent distress at this time. No changes from mb9 previously documented assessment. Airway is patent. SI precautions in place. Sitter at bedside. 14:00 Reassessment: Patient appears in no apparent distress at this time. No changes from mb9 previously documented assessment. Airway is patent. SI precautions in place. Sitter at bedside. 15:00 Reassessment: Patient appears in no apparent distress at this time. No changes from mb9 previously documented assessment. Airway is patent. SI precautions in place. Sitter at bedside. 15:32 Reassessment: Did nurse to nurse report [facility]. mb9 16:00 Reassessment: Patient appears in no apparent distress at this time. No changes from mb9 previously documented assessment. Airway is patent. SI precautions in place. Sitter at bedside. 16:40 Reassessment: Pt states, "get your bitch ass outta my room, you ugly ass hoe." Pt mb9 pulled IV out. Vital Signs: 09:47 Weight 83.91 kg; Height 5 ft. 6 in. ; mb9 10:50 BP 132 / 90; Pulse 108; Resp 18; Temp 98; Pulse Ox 99% on R/A; mb9 17:20 BP 128 / 84; Pulse 95; Resp 18; Pulse Ox 99% ; mb9 09:47 Body Mass Index 29.86 (83.91 kg, 167.64 cm) mb9 ED Course: 09:44 Patient arrived in ED. ap3 09:46 Zhane Lobo PA-C is PHCP. sb4 09:46 Stanislaw Estrada MD is Attending Physician. sb4 09:46 Indy Nguyen RN is Primary Nurse. mb9 09:46 Arm band placed on. mb9 09:49 Triage completed. mb9 09:51 Bed in low position. mb9 09:58 No provider procedures requiring assistance completed. mb9 11:45 EKG done, by ED staff, reviewed by Zhane Lobo PA-C. Inserted saline lock: 20 gauge in mb9 right antecubital area, using aseptic technique. 11:45 CK Sent. mb9 11:45 Acetaminophen Sent. mb9 11:45 Basic Metabolic Panel Sent. mb9 11:45 CBC with Diff Sent. mb9 11:45 ETOH Level Sent. mb9 11:45 Hepatic Function Sent. mb9 11:45 PT-INR Sent. mb9 11:45 Salicylate Sent. mb9 11:46 Ptt, Activated Sent. mb9 14:27 Faxed patient clinical information to the following facilities in attempt to find eb placement/ [facility], [facility] and [facility]. 15:20 connected [facility] nurse with Philomena Hewitt for nurse to nurse. eb 15:55 administrative approval given by Ciro Urbina/ patient has been accepted to [facility]/ Dr. Da Gómez has accepted the patient in transfer without consultation with Zhane Lira. 16:42 IV discontinued, intact, bleeding controlled, No redness/swelling at site. Pressure mb9 dressing applied. Administered Medications: 09:52 Drug: Geodon IM 20 mg IM once Route: IM; Site: right deltoid; mb9 10:26 Follow up: Response: No adverse reaction mb9 10:12 Drug: LORazepam IM 2 mg IM once Route: IM; Site: left deltoid; mb9 10:26 Follow up: Response: No adverse reaction mb9 10:57 Drug: diphenhydrAMINE IM 50 mg IM once Route: IM; Site: left deltoid; mb9 11:52 Follow up: Response: No adverse reaction mb9 12:34 Drug: NS 0.9% IV 1000 ml IV at 1 bolus Per protocol; 1000 mL bolus Route: IV; Rate: 1 mb9 bolus; Site: right antecubital; Medication: 10:02 VIS not applicable for this client. mb9 Outcome: 14:42 ER care complete, transfer ordered by . sb4 17:20 Transferred Note: [facility] mb9 17:20 Condition: stable 17:20 Instructed on the need for transfer, 17:21 Patient left the ED. mb9 Signatures: Cinthia Maldonado RN RN [email or web address] Thuy Clemens Sophia, PA-C PA-C sb4 Indy Nguyen RN RN mb9 Corrections: (The following items were deleted from the chart) 10:28 10:08 Reassessment: Pt climbing out of bed and attempting to walk in hallway. Pt mb9 redirected to room. ERP notified. New orders at this time mb9 13:10 12:00 Reassessment: Patient appears in no apparent distress at this time. No changes mb9 from previously documented assessment. mb9
[2023-09-19 17:40] VITALS: BP 128/84; TEMP 98; O2SAT 99
--- NOTE | 2023-09-24 13:47 | EKG ---
Test Date: 2023-09-19 Test Time: 11:43:20 Logistics Director: MB MEASUREMENT RESULTS: Intervals: Rate: 106 TN: 154 QRSD: 84 QT: 352 QTc: 467 [place]: P: 71 TN: 154 QRS: 1 T: 63 INTERPRETIVE STATEMENTS: Sinus tachycardia Right atrial enlargement Anterior infarct, age undetermined Abnormal ECG Compared to ECG 03/29/2022 05:52:26 Myocardial infarct finding now present Electronically Signed On 09-24-23 13:28:[address] by Adam Booth
== END ==
LOC: ER 09:43
DX: F31.89 Other bipolar disorder (principal); F23 Brief psychotic disorder; E11.9 Type 2 diabetes mellitus without complications; I10 Essential (primary) hypertension; R41.82 Altered mental status, unspecified
CPT/HCPCS: 93005; 85025; 80048; 36415; 82550; 85610; 80076; 85730; 80143; 80179; 82077; J1200; J7030

== ENCOUNTER 2024-06-26 12:30 | Emergency (ER) | payer OTHER ==
[2024-06-26 14:00] LABS: Specific Gravity 1.029 (1.005-1.030); Urine Bacteria None Seen /HPF (<20); Urine Bilirubin NEGATIVE (Negative); Urine Blood Negative (Negative); Urine Clarity Turbid (Clear); Urine Color Yellow (Yellow); Urine Culture Reflex Order REFLEXED; Urine Glucose NEGATIVE (Negative); Urine Ketones 2+ (Negative); Urine Microscopic Reflex YN ORDER UMIC; Urine Mucus Slight /HPF (None Seen); Urine Nitrite NEGATIVE (Negative); Urine Protein TRACE (Negative); Urine Urobilinogen Normal (Normal)
[2024-06-26 14:01] LABS: Barbiturates NEGATIVE (NEGATIVE); Benzodiazepines POSITIVE (NEGATIVE); Cocaine NEGATIVE (NEGATIVE); METHAMPHETAM POSITIVE (NEGATIVE); Methadone NEGATIVE (NEGATIVE); Opiates NEGATIVE (NEGATIVE); Phencyclidine NEGATIVE (NEGATIVE); THC Cannibis POSITIVE (NEGATIVE)
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
== END 2024-06-26 14:33 | disposition home or self-care (01) ==
LOC: ER 12:30
DX: N39.0 Urinary tract infection, site not specified (principal); F15.90 Other stimulant use, unspecified, uncomplicated; T76.21XA Adult sexual abuse, suspected, initial encounter; F20.9 Schizophrenia, unspecified
CPT/HCPCS: 80307; 81001; 87077; 87086; 87088; 87186; 99283

== ENCOUNTER 2024-08-08 13:37 | Emergency (ER) | payer OTHER ==
--- NOTE | 2024-08-08 14:46 | EDPHYS ---
Physician Documentation [facility] Name: Radha Grubbs Age: 39 yrs Sex: Female : 1985 Arrival Date: 08/08/2024 Time: 13:37 Bed IW10 Private MD: ED Physician Alvino Gunderson HPI: 08/08 14:18 Patient presents to emergency department and upon initial questioning by me declines to cp answer any questions and be evaluated. Historical: - Allergies: 13:51 No Known Allergies; ss - PMHx: 13:46 Anxiety; Bipolar disorder; diabetes mellitus; Hypertension; Schizophrenia; ss ROS: 14:19 Unable to obtain ROS due to patient refuses to answer any questions, cp Exam: 14:20 Unable to obtain exam due to patient refuses examination. cp Vital Signs: 14:18 BP 145 / 103; Pulse 77; Resp 16; Temp 97.1; Pulse Ox 100% ; cm10 MDM: 14:20 Data reviewed: vital signs. Counseling: I had a detailed discussion with the patient cp and/or guardian regarding patient informed she may return at any time for evaluation. 14:22 Medical Screening Exam initiated cp Administered Medications: No medications were administered Disposition: 18:12 Co-signature as Attending Physician, Alvino Gunderson MD I reviewed the patient's care rn provided by the Advanced Practice Provider and agree with the diagnosis and treatment plan. Disposition Summary: 08/08/24 14:45 Eloped Notes: Disposition: after being seen by provider ss Reason: (see nurse's notes) ss Signatures: Alvino Gunderson MD MD rn Blanchard, Shelby, RN RN ss Page, Corey, PA PA cp
--- NOTE | 2024-08-08 14:46 | ER ---
Nurse's Notes [facility] Name: Radha Grubbs Age: 39 yrs Sex: Female : 1985 Arrival Date: 08/08/2024 Time: 13:37 Bed IW10 Private MD: Diagnosis: Presentation: 08/08 13:45 Chief complaint: EMS states: bilateral foot numbness and abdominal and back pain. ss Coronavirus screen: Client denies travel out of the [place] in the last 14 days. Ebola Screen: Patient denies exposure to infectious person. Patient denies travel to an Ebola-affected area in the 21 days before illness onset. Initial Sepsis Screen: Does the patient meet any 2 criteria? No. Patient's initial sepsis screen is negative. Does the patient have a suspected source of infection? No. Patient's initial sepsis screen is negative. 13:45 Acuity: TREVOR 3 ss 13:45 Method Of Arrival: EMS: [facility] ss Triage Assessment: 14:19 General: Appears in no apparent distress. comfortable, Behavior is. Neuro: No deficits cm10 noted. Level of Consciousness is awake, alert, obeys commands, Oriented to person, place, time, situation, Appropriate for age. Respiratory: No deficits noted. Airway is patent Respiratory effort is even, unlabored, Respiratory pattern is regular, symmetrical. Historical: - Allergies: 13:51 No Known Allergies; ss - PMHx: 13:46 Anxiety; Bipolar disorder; diabetes mellitus; Hypertension; Schizophrenia; ss Screenin:19 [facility] ED Fall Risk Assessment (Adult) History of falling in the last 3 months, cm10 including since admission No falls in past 3 months (0 pts) Confusion or Disorientation No (0 pts) Intoxicated or Sedated No (0 pts) Impaired Gait No (0 pts) Mobility Assist Device Used No (0 pt) Altered Elimination No (0 pt) Score/Fall Risk Level 0 - 2 = Low Risk Oriented to surroundings, Maintained a safe environment, Hourly rounding (assess needs \T\ fall precautionary measures) done. Abuse screen: Denies threats or abuse. Denies injuries from another. Nutritional screening: No deficits noted. Tuberculosis screening: No symptoms or risk factors identified. Assessment: 14:18 General: UPON COMPLETING VITAL PT STATES THAT SHE DOES NOT WANT TO BE SEEN AND FEELS cm10 BETTER. PT STATES THAT SHE WOULD LIKE TO LEAVE. PROVIDER AWARE.. Vital Signs: 14:18 BP 145 / 103; Pulse 77; Resp 16; Temp 97.1; Pulse Ox 100% ; cm10 ED Course: 13:44 Patient arrived in ED. ss 13:46 Triage completed. ss 14:08 Glen James PA is PHCP. cp 14:08 Alvino Gunderson MD is Attending Physician. cp 14:18 Arm band placed on right wrist. cm10 14:20 Patient has correct armband on for positive identification. Provided Education on: ER cm10 PROCESS AND PROCEDURES.. 14:20 No provider procedures requiring assistance completed. Patient did not have IV access cm10 during this emergency room visit. Administered Medications: No medications were administered Medication: 14:20 VIS not applicable for this client. cm10 Outcome: 14:18 Eloped from triage room, after being seen by provider. SEE NURSES NOTES. ss 14:45 Patient left the ED. ss Signatures: Estrellita Alexandre RN RN ss Glen James PA PA cp Rizwana Salazar, RN RN cm10
[2024-08-08 15:00] VITALS: BP 145/103; TEMP 97.1; O2SAT 100
== END 2024-08-08 14:45 | disposition left against medical advice (07) ==
LOC: ER 13:37
DX: R20.0 Anesthesia of skin (principal)
CPT/HCPCS: 99282

== ENCOUNTER 2024-08-18 23:54 | Emergency (ER) | payer OTHER ==
--- NOTE | 2024-08-19 00:08 | EDPHYS ---
Physician Documentation [facility] Name: Radha Grubbs Age: 39 yrs Sex: Female : 1985 Arrival Date: 08/18/2024 Time: 23:54 Bed 2 Private MD: ED Physician Jaron Talavera HPI: 08/19 00:00 This 39 yrs old Black Female presents to ER via Unassigned with complaints of Near sp4 syncope . 00:00 39-year-old female presents with [facility] from [facility]. Patient has called EMS sp4 from the local [facility] reporting that she has near passing out episode. Patient was reported by EMS to refuse vital signs and refused IV. Patient on arrival has refused vital signs and refused medical evaluation.. Based on record, Patient apparently has history of bipolar disorder, methamphetamine abuse cannabis abuse. Patient herself reports history of schizophrenia.. FRAME WIRER: 08/18 23:56 unknown, unable to obtain lg3 Historical: - PMHx: 08/19 00:02 Bipolar disorder; sp4 - Immunization history:: Adult Immunizations unknown. - Social history:: pt refuses to provide info at this time . - Family history:: not pertinent. ROS: 00:02 Constitutional: Negative for fever, chills, and weight loss, positive for dizziness, sp4 positive for near syncope 00:02 All other systems are negative, Exam: 00:02 Constitutional: This is a well developed, well nourished patient who is awake, alert, sp4 appears intoxicated on stimulant, has pressured speech, uncooperative, patient refused vital signs, refused detailed physical exam. Head/Face: Normocephalic, atraumatic. Skin: Warm, dry with normal turgor. Normal color with no rashes, no lesions, and no evidence of cellulitis. MS/ Extremity: Normal gait, patient refused additional exam Neuro: Awake and alert, GCS 15, oriented to person, place, patient has normal gait, no sign of localized neurologic deficits. Psych: Awake, alert, with orientation to person, place, patient has pressured speech, appears intoxicated on stimulant, refused full examination. Vital Signs: 08/18 23:56 lg3 23:56 pt refused lg3 [place] Coma Score: 08/19 00:02 Eye Response: spontaneous(4). Motor Response: obeys commands(6). Verbal Response: sp4 oriented(5). Total: 15. MDM: 00:05 Differential diagnosis: generalized weakness, hypovolemia, idiopathic dizziness, sp4 near-syncope, syncope, vertigo. Data reviewed: vital signs, nurses notes, EMS record, old medical records. ED course: In front of 3 other people patient has completely refused medical assessment, refused vital signs, refused IV, refused medical test. Patient further then decided to leave the emergency department. At this time we have no rationale to hold patient in the emergency department. Patient was allowed to depart and was provided informed discharge. Patient was advised to return to the emergency room in case she changes her mind.. 00:07 Medical Screening Exam initiated sp4 Administered Medications: No medications were administered Disposition Summary: 08/19/24 00:07 Discharge Ordered Notes: Location: Home sp4 Problem: new sp4 Symptoms: are unchanged sp4 Condition: Stable sp4 Diagnosis - Dizziness and giddiness sp4 - Syncope Near sp4 Followup: sp4 - With: Private Physician - When: As needed - Reason: Discharge Instructions: - Discharge Summary Sheet sp4 - Near-Syncope sp4 Forms: - Patient Portal Instructions sp4 Signatures: Rose Jolley RN RN lg3 Jaron Talavera MD MD sp4 Corrections: (The following items were deleted from the chart) 00:02 00:02 PMHx: Hypertension; sp4 sp4 00:02 00:02 PMHx: Anxiety; sp4 sp4 00:02 00:02 PMHx: diabetes mellitus; sp4 sp4 00:02 00:02 PMHx: Schizophrenia; sp4 sp4
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
== END 2024-08-19 00:17 | disposition home or self-care (01) ==
LOC: ER 23:54
DX: R42 Dizziness and giddiness (principal); R55 Syncope and collapse; F31.9 Bipolar disorder, unspecified
CPT/HCPCS: 99283

== ENCOUNTER 2024-12-11 13:40 | Emergency (ER) | payer OTHER ==
[2024-12-11] MEDS ORDERED: NA CHLORIDE 0.9% 1,000 ML ONE (14:20)
[2024-12-11] MEDS ORDERED: LORazepam 2 MG/ML VIAL ONE (14:20)
--- NOTE | 2024-12-11 14:37 | EDPHYS ---
Physician Documentation [facility] Name: Radha Grubbs Age: 39 yrs Sex: Female : 1985 Arrival Date: 12/11/2024 Time: 13:40 Bed 14 Private MD: ED Physician Glen Vela HPI: 12/11 14:32 This 39 yrs old Black Female presents to ER via EMS with complaints of SOCIAL ISSUE. nguyen 14:32 The patient presents to the emergency department with anxiety, over unknown nguyen circumstances. Onset: The symptoms/episode began/occurred 2 day(s) ago. Past psychiatric history: Prior diagnosis: bipolar disorder, Psychiatric medications include:. Associated signs and symptoms: Pertinent positives; depression, substance abuse. Severity of symptoms: At their worst the symptoms were mild in the emergency department the symptoms are unchanged. The patient has experienced similar episodes in the past, multiple times. Historical: - Allergies: 13:46 No Known Allergies; bp - PMHx: 13:46 Bipolar disorder; SUBSTANCE ABUSE; bp - Immunization history:: Adult Immunizations up to date. - Infectious Disease History:: Denies. - Social history:: Smoking status: unknown. - Family history:: not pertinent. ROS: 14:32 Constitutional: Negative for fever, chills, and weight loss, Eyes: Negative for injury, nguyen pain, redness, and discharge, ENT: Negative for injury, pain, and discharge, Neck: Negative for injury, pain, and swelling, Cardiovascular: Negative for chest pain, palpitations, and edema, Respiratory: Negative for shortness of breath, cough, wheezing, and pleuritic chest pain, Abdomen/GI: Negative for abdominal pain, nausea, vomiting, diarrhea, and constipation, Back: Negative for injury and pain, : Negative for injury, bleeding, discharge, and swelling, MS/Extremity: Negative for injury and deformity, Skin: Negative for injury, rash, and discoloration, Neuro: Negative for headache, weakness, numbness, tingling, and seizure, Allergy/Immunology: Negative for hives, rash, and allergies, Endocrine: Negative for neck swelling, polydipsia, polyuria, polyphagia, and marked weight changes, Hematologic/Lymphatic: Negative for swollen nodes, abnormal bleeding, and unusual bruising, 14:32 Psych: Positive for anxiety, Exam: 14:32 Constitutional: This is a well developed, well nourished patient who is awake, alert, nguyen and in no acute distress. Head/Face: Normocephalic, atraumatic. Eyes: Pupils equal round and reactive to light, extra-ocular motions intact. Lids and lashes normal. Conjunctiva and sclera are non-icteric and not injected. Cornea within normal limits. Periorbital areas with no swelling, redness, or edema. ENT: Nares patent. No nasal discharge, no septal abnormalities noted. Tympanic membranes are normal and external auditory canals are clear. Oropharynx with no redness, swelling, or masses, exudates, or evidence of obstruction, uvula midline. Mucous membranes moist. Neck: Trachea midline, no thyromegaly or masses palpated, and no cervical lymphadenopathy. Supple, full range of motion without nuchal rigidity, or vertebral point tenderness. No Meningismus. Chest/axilla: Normal chest wall appearance and motion. Nontender with no deformity. No lesions are appreciated. Cardiovascular: Regular rate and rhythm with a normal S1 and S2. No gallops, murmurs, or rubs. Normal PMI, no JVD. No pulse deficits. Respiratory: Lungs have equal breath sounds bilaterally, clear to auscultation and percussion. No rales, rhonchi or wheezes noted. No increased work of breathing, no retractions or nasal flaring. Abdomen/GI: Soft, non-tender, with normal bowel sounds. No distension or tympany. No guarding or rebound. No evidence of tenderness throughout. Back: No spinal tenderness. No costovertebral tenderness. Full range of motion. Skin: Warm, dry with normal turgor. Normal color with no rashes, no lesions, and no evidence of cellulitis. MS/ Extremity: Pulses equal, no cyanosis. Neurovascular intact. Full, normal range of motion., bilateral aka Neuro: Awake and alert, GCS 15, oriented to person, place, time, and situation. Cranial nerves II-XII grossly intact. Motor strength 5/5 in all extremities. Sensory grossly intact. Cerebellar exam normal. Normal gait. Psych: Awake, alert, with orientation to person, place and time. Behavior, mood, and affect are within normal limits. 14:32 Psych: Behavior/mood is cooperative, Affect is calm, Oriented to person, place, time, Patient has no thoughts/intents to harm self or others. Judgement / Insight is normal. Memory is normal. Delusions/hallucinations are not present. Vital Signs: 13:44 BP 155 / 69; Pulse 89; Resp 16; Temp 98; Pulse Ox 99% ; bp MDM: 13:43 Medical Screening Exam initiated nguyen 14:35 Differential diagnosis: drug withdrawal. acute psychotic break, depression, psychosis nguyen secondary to non-compliance. Data reviewed: vital signs, nurses notes, lab test result(s). Consideration of Admission/Observation Escalation of care including admission/observation considered. I considered the following discharge prescriptions or medication management in the emergency department Medications were administered in the Emergency Department. See MAR. Test considered but Not performed: CT: NO CT HEAD. Historians other than the Patient: EMS: EMS WELL INFORMED. Care significantly affected by the following chronic conditions: BIPOLAR, SUBSTANCE ABUSE. 12/11 13:45 Order name: EKG; Complete Time: 13:46 nguyen Administered Medications: 14:27 CANCELLED (Patient Refused): ns 0.9% 1000 ml IV at 1 bolus Per protocol; to be given as bp a bolus over 60 minutes Disposition Summary: 12/11/24 14:37 Discharge Ordered Notes: Location: Home nguyen Problem: new nguyen Symptoms: are unchanged nguyen Condition: Stable nguyen Diagnosis - Bipolar disorder, unspecified - NOT SUICIDAL nguyen Followup: nguyen - With: Private Physician - When: 2 - 3 days - Reason: Recheck today's complaints, Continuance of care, Re-evaluation by your physician Followup: nguyen - With: Singh Cardenas MD - When: 2 - 3 days - Reason: Recheck today's complaints, Re-evaluation by your physician Discharge Instructions: - Discharge Summary Sheet nguyen - Managing Bipolar Disorder nguyen - Supporting Someone With Bipolar Disorder nguyen Forms: - Medication Reconciliation Form nguyen - Antibiotic Education nguyen - Prescription Opioid Use nguyen - Patient Portal Instructions nguyen - Leadership Thank You Letter nguyen Signatures: Dispatcher [employer] Glen Gonzalez MD MD cha Peltier, Brian, RN RN bp Corrections: (The following items were deleted from the chart) 14:27 13:45 EKG - Nurse/Tech ordered. [facility] bp 14:27 13:45 IV Saline Lock ordered. [facility] bp 14:27 13:45 Labs collected and sent ordered. [facility] bp 14:27 13:45 Suicide Screening ([place]) ordered. nguyen bp 14:27 13:45 NS 0.9% IV 1000 ml IV at 1 bolus Per protocol; to be given as a bolus over 60 bp minutes ordered. nguyen
--- NOTE | 2024-12-11 14:37 | ER ---
Nurse's Notes [facility] Name: Radha Grubbs Age: 39 yrs Sex: Female : 1985 Arrival Date: 12/11/2024 Time: 13:40 Bed 14 Private MD: Diagnosis: Bipolar disorder, unspecified-NOT SUICIDAL Presentation: 12/11 13:44 Chief complaint: EMS states: CALL TRANSFERRED FROM [facility] FOR PT BEING AT A HOME SHE bp DID NOT LIVE AT. PT UNCOOPERATIVE WITH EMS EN ROUTE. Coronavirus screen: At this time, the client does not indicate any symptoms associated with coronavirus-19. Ebola Screen: No symptoms or risks identified at this time. Initial Sepsis Screen: Does the patient meet any 2 criteria? No. Patient's initial sepsis screen is negative. Does the patient have a suspected source of infection? No. Patient's initial sepsis screen is negative. Risk Assessment: Do you want to hurt yourself or someone else? Patient reports no desire to harm self or others. Onset of symptoms is unknown. 13:44 Method Of Arrival: EMS: [facility] bp 13:44 Acuity: TREVOR 5 bp Triage Assessment: 13:46 General: Appears in no apparent distress. Behavior is appropriate for age, bp uncooperative. Pain: Denies pain. Historical: - Allergies: 13:46 No Known Allergies; bp - PMHx: 13:46 Bipolar disorder; SUBSTANCE ABUSE; bp - Immunization history:: Adult Immunizations up to date. - Infectious Disease History:: Denies. - Social history:: Smoking status: unknown. - Family history:: not pertinent. Screenin:27 [facility] ED Fall Risk Assessment (Adult) History of falling in the last 3 months, bp including since admission No falls in past 3 months (0 pts). [facility] ED Fall Risk Assessment (Adult) Confusion or Disorientation No (0 pts) Intoxicated or Sedated No (0 pts) Impaired Gait No (0 pts) Mobility Assist Device Used No (0 pt) Altered Elimination No (0 pt) Score/Fall Risk Level 0 - 2 = Low Risk Oriented to surroundings. Abuse screen: Denies threats or abuse. Denies injuries from another. Nutritional screening: No deficits noted. Tuberculosis screening: No symptoms or risk factors identified. Assessment: 14:26 Reassessment: PT REFUSING EKG, IV AND OTHER HEALTH CARE ACTIVITIES. INFORMED. PT bp ELOPED WITH STEADY GAIT. Vital Signs: 13:44 BP 155 / 69; Pulse 89; Resp 16; Temp 98; Pulse Ox 99% ; bp ED Course: 13:42 Patient arrived in ED. bp 13:43 Glen Vela MD is Attending Physician. nguyen 13:44 Matti Stinson, RN is Primary Nurse. bp 13:45 Triage completed. bp 13:46 Arm band placed on. bp 14:27 Patient has correct armband on for positive identification. bp 14:27 No provider procedures requiring assistance completed. Patient did not have IV access bp during this emergency room visit. 14:36 Singh Cardenas MD is Referral Physician. nguyen Administered Medications: 14:27 CANCELLED (Patient Refused): ns 0.9% 1000 ml IV at 1 bolus Per protocol; to be given as bp a bolus over 60 minutes Outcome: 14:37 Discharge ordered by . nguyen 14:50 Discharged to home ambulatory, bp 14:50 Condition: stable 14:50 Discharge instructions given to patient, Instructed on discharge instructions, follow up and referral plans. Demonstrated understanding of instructions, follow-up care, 14:51 Patient left the ED. bp Signatures: Glen Vela MD MD cha Peltier, Brian, RN RN bp
[2024-12-11 14:58] VITALS: BP 155/69; TEMP 98; O2SAT 99
== END 2024-12-11 14:51 | disposition home or self-care (01) ==
LOC: ER 13:40
DX: F31.9 Bipolar disorder, unspecified (principal)
CPT/HCPCS: 99283; J7030